=== PATIENT | male | born 1950 | race Caucasian/White ===

== ENCOUNTER 2016-08-18 10:19 | Emergency (ER) | payer OTHER, MEDICARE ==
[~2016-08-18] VITALS: Ht 182.8 cm; Wt 152.0 kg
[2016-08-18 11:01] LABS: BASO % 0.6 % (0.0-1.0); EOS # 0.2 10*3/uL (0.0-0.4); EOS % 3.4 % (1.0-4.0); HEMATOCRIT 35.1 % (42.0-52.0); HEMOGLOBIN 11.4 g/dl (14.0-18.0); IG # 0.1 10*3/uL (0.0-0.1); LYMPH # 0.8 10*3/uL (1.3-4.4); LYMPH % 16.4 % (27.0-41.0); MEAN CELL VOLUME 98.3 fl (80.0-94.0); MEAN CORPUSCULAR HGB 31.9 pg (27.0-31.0); MEAN CORPUSCULAR HGB CONC 32.5 g/dl (33.0-37.0); MEAN PLATELET VOLUME 9.4 fl (9.6-12.3); MONO # 0.6 10*3/uL (0.1-1.0); MONO % 12.7 % (3.0-9.0); NEUT # 3.3 10*3/uL (2.3-7.9); NEUT % 65.5 % (47.0-73.0); PLATELET COUNT AUTOMATED 174 10*3/uL (130-400); RED BLOOD COUNT 3.57 10*6/uL (4.50-5.90); RED CELL DISTRI WIDTH 13.3 % (0-14.5); WHITE BLOOD COUNT 5.1 10*3/uL (4.8-10.8)
[2016-08-18 11:10] LABS: INTERNATIONAL NORM RATIO 1.9 (2.0-3.5); PROTHROMBIN TIME 20.6 SECONDS (9.0-12.4)
[2016-08-18 11:16] LABS: ALBUMIN 3.4 gm/dl (3.1-4.5); ALKALINE PHOSPHATASE 68 U/L (45-117); BILIRUBIN, TOTAL 0.2 mg/dl (0.2-1.0); BUN 18 mg/dl (7-24); CARBON DIOXIDE 28 mmol/L (21-32); CHLORIDE 108 mmol/L (98-107); EST GLOM FILT AFRICAN AMERICAN > 60 ml/min; GLUCOSE 90 mg/dL (65-99); MAGNESIUM 1.7 mg/dL (1.5-2.1); POTASSIUM 3.7 mmol/L (3.5-5.1); SGOT/AST 20 IU/L (3-35); SGPT/ALT 24 U/L (12-78); SODIUM 144 mmol/L (136-145); TOTAL PROTEIN 7.2 gm/dL (6.4-8.2)
== END 2016-08-18 12:14 | disposition home or self-care (01) ==
LOC: ED 10:19
PROVIDERS: Student in an Organized Health Care Education/Training Program
DX: R06.02 Shortness of breath (principal); R07.89 Other chest pain; R05 Cough; J44.9 Chronic obstructive pulmonary disease, unspecified; I10 Essential (primary) hypertension; F17.200 Nicotine dependence, unspecified, uncomplicated

== ENCOUNTER 2017-08-26 11:10 | Emergency (ER) | payer OTHER, MEDICARE ==
[~2017-08-26] VITALS: Ht 182.8 cm; Wt 171.9 kg
--- NOTE | ~2017-08-26 | EKG ---
[place], [place] ELECTROCARDIOGRAM REPORT NAME: PRIMITIVO TOSCANO UNIT #: [id number] ROOM: DOCTOR: TOOTIE PATEL MD BIRTHDATE: [birth year] DOS: 08/26/2017 TIME: 1140 hours. FINDINGS: 1. Normal sinus rhythm at 72 beats per minute. 2. Low voltage in precordial leads. 3. The tracing is otherwise normal. 4. No previous tracing is available for comparison. TOOTIE PATEL MD CM:EKGRPT:ELECTROCARDIOGRAM REPORT 1140 1224 TOOTIE PATEL MD
[2017-08-26 11:45] LABS: BASO # 0.1 10*3/uL (0.0-0.1); BASO % 0.8 % (0.0-1.0); EOS # 0.2 10*3/uL (0.0-0.4); EOS % 2.6 % (1.0-4.0); HEMATOCRIT 37.9 % (42.0-52.0); HEMOGLOBIN 12.1 g/dl (14.0-18.0); LYMPH # 0.6 10*3/uL (1.3-4.4); LYMPH % 10.3 % (27.0-41.0); MEAN CELL VOLUME 92.7 fl (80.0-94.0); MEAN CORPUSCULAR HGB 29.6 pg (27.0-31.0); MEAN CORPUSCULAR HGB CONC 31.9 g/dl (33.0-37.0); MEAN PLATELET VOLUME 9.4 fl (9.6-12.3); MONO # 0.4 10*3/uL (0.1-1.0); MONO % 7.1 % (3.0-9.0); NEUT # 4.8 10*3/uL (2.3-7.9); NEUT % 77.1 % (47.0-73.0); PLATELET COUNT AUTOMATED 181 10*3/uL (130-400); RED BLOOD COUNT 4.09 10*6/uL (4.50-5.90); RED CELL DISTRI WIDTH 14.6 % (0-14.5); WHITE BLOOD COUNT 6.2 10*3/uL (4.8-10.8)
[2017-08-26 11:53] LABS: INTERNATIONAL NORM RATIO 2.1 (2.0-3.5)
[2017-08-26 12:02] LABS: ALBUMIN 3.3 gm/dl (3.1-4.5); ALKALINE PHOSPHATASE 64 U/L (45-117); BUN 21 mg/dl (7-24); CHLORIDE 105 mmol/L (98-107); CREATININE 1.33 mg/dL (0.70-1.30); SGOT/AST 22 IU/L (3-35); SGPT/ALT 29 U/L (12-78); SODIUM 141 mmol/L (136-145); TOTAL PROTEIN 6.8 gm/dL (6.4-8.2)
[2017-08-26 12:04] LABS: TROPONIN I < 0.015 ng/ml (<0.045)
== END 2017-08-26 13:16 | disposition home or self-care (01) ==
LOC: ED 11:10
PROVIDERS: Nurse Practitioner Family
DX: J44.9 Chronic obstructive pulmonary disease, unspecified (principal); R10.11 Right upper quadrant pain; F17.200 Nicotine dependence, unspecified, uncomplicated

== ENCOUNTER → 2018-01-12 | Outpatient (CLI) | payer MEDICARE, OTHER | END | disposition home or self-care (01) | LOC: US 12:30 | DX: I70.203 Unspecified atherosclerosis of native arteries of extremities, bilateral legs (principal); I10 Essential (primary) hypertension; I27.9 Pulmonary heart disease, unspecified ==

== ENCOUNTER 2018-11-23 04:03 | Inpatient (IN) | payer OTHER ==
[~2018-11-23] VITALS: Ht 180.3 cm; Wt 195.6 kg
--- NOTE | ~2018-11-23 | PR ---
[place], [place] PROGRESS NOTE NAME: PRIMITIVO TOSCANO UNIT #: [id number] ROOM: 422 DOCTOR: LITZY HILLMAN MD BIRTHDATE: [birth year] DOS: 11/27/2018 NEPHROLOGY FOLLOWUP NOTE SUBJECTIVE: The patient was seen and examined. He is awake and alert. He feels comfortable. He denies any major complaints to me. He states he is urinating without difficulty. PHYSICAL EXAMINATION: VITAL SIGNS: Temperature 98.3, pulse 68, respiratory rate 20, blood pressure 100/68. HEENT: Shows no JVD. LUNGS: Diminished breath sounds. No wheeze. Few scattered rhonchi were noted. HEART: S1, S2. No rub. ABDOMEN: Soft, nontender, obese. EXTREMITIES: Had +2 to 3 edema. SKIN: Showed no overt rash. LABORATORY DATA: Hemoglobin 10.7, white count of 6.9, platelets 109. Sodium 143, potassium 4.6, CO2 of 31, BUN 46, creatinine 1.76, glucose 220. Calcium 8.2, phosphorus 3.9, magnesium 2.3, albumin 2.9. ASSESSMENT AND PLAN: 1. Acute on mild chronic kidney disease. The patient has a baseline creatinine that seems to be in the low 1s. The etiology of his acute kidney injury is unclear, though suspect a prerenal process/possible acute tubular necrosis. Creatinine is about the same. Continue to hold JONATHAN inhibitor and hydrochlorothiazide for now. Since he will be staying in the hospital, we will check renal imaging. He likely will have a renal ultrasound that will be helpful, but can certainly try and see if the kidneys can be imaged and visualized. Follow labs. Replace electrolytes as needed. 2. Hypertension. Hold the JONATHAN inhibitor and hydrochlorothiazide. His blood pressure is actually on the lower side. 3. Anemia. Stable H and H. 4. Atrial fibrillation. The patient remains on Xarelto. If his creatinine rises, this may need to be changed. 5. Questionable syncope/presyncope. Being worked up by the primary service. [place], [place] PROGRESS NOTE NAME: PRIMITIVO TOSCANO UNIT #: [id number] ROOM: 422 DOCTOR: LITZY HILLMAN MD BIRTHDATE: [birth year] LITZY HILLMAN MD CM:PNTRANS [id number] LITZY HILLMAN MD 11/28/18 0131 interface
--- NOTE | ~2018-11-23 | CON ---
[place], [place] REPORT OF CONSULTATION NAME: PRIMITIVO TOSCANO UNIT #: [id number] ROOM: 422 DOCTOR: LITZY HILLMAN MD BIRTHDATE: [birth year] DOS: 11/25/2018 REASON FOR CONSULTATION: Acute kidney injury. HISTORY OF PRESENT ILLNESS: This patient is a 68-year-old male with past medical history of atrial fibrillation, COPD, lymphoma, hyperlipidemia and hypertension, came to the hospital due to inability to keep his balance. Apparently, he called 911, was brought to the hospital. The patient also complained of other issues such as headache and some hearing loss. He had some issues with nausea and abdominal pain as well. He came to the hospital for further evaluation. His initial creatinine seems to be at baseline in the range of 1.3. He has had now an increase in his creatinine, which prompted the consult to Renal. Creatinine today was noted to be 2.1. He told me he has not had any issues with voiding. Denied fevers or chills. I do not see that he received any contrast studies. He is unaware of having any issues related to his kidneys and does not recall falling or seeing a hydrogen power plant manager. It appears he does take an JONATHAN inhibitor and hydrochlorothiazide for his blood pressure. It does not appear that he has had any hypotensive episodes. ALLERGIES: No known drug allergies. MEDICATIONS: Include Solu-Medrol, Mucinex, Rocephin, Zithromax, Protonix, albuterol, Lipitor, gabapentin, Zofran, meclizine, lisinopril, hydrochlorothiazide, nystatin, insulin, morphine. PAST MEDICAL HISTORY: 1. Atrial fibrillation. 2. COPD. 3. Lymphoma. 4. Hyperlipidemia. 5. Hypertension. 6. Obesity. 7. Kidney stones. 8. Depression. 9. EGD. 10. Colonoscopy. 11. Port-A-Cath placement. 12. Right knee replacement. FAMILY HISTORY: Negative for chronic kidney disease, otherwise noncontributory. SOCIAL HISTORY: No reports of current tobacco, alcohol or illicit drugs. REVIEW OF SYSTEMS: As per HPI, otherwise a 10-point review of systems was reviewed and was negative. PHYSICAL EXAMINATION: VITAL SIGNS: Temperature is afebrile, pulse 86, respiratory rate 22, blood pressure 140/87. GENERAL: He is awake, alert, comfortable, in no acute distress. [place], [place] REPORT OF CONSULTATION NAME: PRIMITIVO TOSCANO UNIT #: [id number] ROOM: 422 DOCTOR: RAFY PUENTESLITZY Mack BIRTHDATE: [birth year] HEENT: Shows no JVD. Sclerae are anicteric. Mucous membranes are moist. Pharynx is clear. NECK: Supple. Trachea was midline. There is no neck lymphadenopathy or thyromegaly. LUNGS: Had diminished breath sounds with scattered rhonchi. I could not appreciate any wheezing. He is not using accessory muscles of respiration. HEART: S1, S2. No rub, thrill or gallop. ABDOMEN: Obese, soft and nontender. I could not appreciate organomegaly. There is no rigidity, rebound or guarding. There is no CVA tenderness. EXTREMITIES: Had trace edema. There is no lower extremity lymphadenopathy. Distal pulses were present. SKIN: Showed no overt rash. There is no petechia or purpura. Skin temperature was warm. NEUROLOGIC: He was awake, he was alert and following commands. Cranial nerves were intact. DIAGNOSTIC DATA: Hemoglobin 10.2, white count of 5.5, platelets 127. Sodium 141, potassium 4.1, CO2 of 31, BUN 30, creatinine 2.07, glucose 166, calcium 8.5, magnesium 1.8, albumin 3.1. I did notice slight troponin I elevation as high as 0.71. IMPRESSION: 1. Acute kidney injury with a baseline creatinine seems to be in the range of 1.3. The etiology of the patient's acute kidney injury seems likely related to prerenal factors. Other possibilities include obstruction versus acute tubular necrosis from prolonged prerenal state or hemodynamically mediated. 2. Hypertension. 3. Anemia. 4. Thrombocytopenia. 5. History of lymphoma. 6. Morbid obesity. 7. Atrial fibrillation. PLAN: 1. Would hold his lisinopril and hydrochlorothiazide for now. 2. Would check renal imaging. I am not sure due to his body habitus that an ultrasound will be helpful, but can consider some form of renal imaging if his creatinine does not show improvement. 3. Would check a bladder scan. 4. Dose meds for current creatinine clearance. 5. Avoid nephrotoxic agents. 6. Encourage oral fluids. Thank you for this consultation. We will follow with you. [place], [place] REPORT OF CONSULTATION NAME: PRIMITIVO TOSCANO UNIT #: [id number] ROOM: 422 DOCTOR: RAFY PUENTES,LITZY Giron BIRTHDATE: [birth year] LITZY HILLMAN MD CM:CONSTR:REPORT OF CONSULTATION 1514 11/26/18 0550 interface
--- NOTE | ~2018-11-23 | PR ---
[place], [place] PROGRESS NOTE NAME: PRIMITIVO TOSCANO UNIT #: [id number] ROOM: 422 DOCTOR: AMBER KEBEDE DPM BIRTHDATE: [birth year] DOS: 11/29/2018 SUBJECTIVE: The patient was seen for followup ulceration, lateral right ankle. OBJECTIVE: Ulcerations, lateral right ankle, are superficial in nature. No signs of full thickness breakdown. No signs of drainage or fluctuance. Edema to both lower extremities noted. ASSESSMENT: Ulceration, superficial nature, lateral right ankle; edema bilateral. PLAN: Evaluation and management. Continue local wound care and the patient can followup on discharge. AMBER KEBEDE DPM CM:ASHLIETRANS [id number] AMBER KEBEDE DPM 11/29/18 1509 interface
--- NOTE | ~2018-11-23 | EKG ---
[place], [place] ELECTROCARDIOGRAM REPORT NAME: PRIMITIVO TOSCANO UNIT #: [id number] ROOM: 422 DOCTOR: JANETH DRAFT REPORT BIRTHDATE: [birth year] [facility] Test Date: 2018-11-23 Test Time: 04:32:40 Pat Name: PRIMITIVO TOSCANO Department: Room: 422 Gender: M Chief Of Anesthesiology: : 1950 Requested By: KRISTOPHER NAPIER Order Number: [id number] Reading MD: Ksenia Mcintyre MD Measurements Intervals Savery Rate: 64 P: 22 VT: 192 QRS: -12 QRSD: 97 T: 31 QT: 411 QTc: 424 Interpretive Statements Sinus rhythm Low voltage, precordial leads Baseline wander in lead(s) V1,V2 Electronically Signed On 11-23-2018 9:41:15 PDT by Ksenia Mcintyre MD CM:EKGRPT:ELECTROCARDIOGRAM REPORT [id number] [id number] KRISTOPHER NAPIER MD EPIPHANY DRAFT REPORT KRISTOPHER NAPIER MD
--- NOTE | ~2018-11-23 | PR ---
[place], [place] PROGRESS NOTE NAME: PRIMITIVO TOSCANO UNIT #: [id number] ROOM: 422 DOCTOR: LITZY HILLMAN MD BIRTHDATE: [birth year] DOS: 11/26/2018 NEPHROLOGY FOLLOWUP SUBJECTIVE: The patient was seen and examined. He is awake and alert and feeling better. His family is at bedside. States he is probably being discharged tomorrow. Denies shortness of breath, nausea or vomiting. PHYSICAL EXAMINATION: VITAL SIGNS: Temperature 97.7, pulse 70, respiratory rate 20, blood pressure 115/45. HEENT: Shows no JVD. LUNGS: Had few scattered rhonchi. HEART: S1, S2. No rub. ABDOMEN: Obese, soft, nontender. EXTREMITIES: Had 1-2+ edema. LABORATORY DATA: Hemoglobin 10.8, white count of 5.1, platelets 108. Sodium 142, potassium 4.8, BUN 37, creatinine 1.6, glucose 196, calcium 8.4. ASSESSMENT AND PLAN: 1. Acute kidney injury with a baseline creatinine that seems to be in the low 1s. The etiology seems likely related to prerenal factors. The patient's creatinine is better. Continue ongoing supportive care. Replace electrolytes as needed. Avoid nephrotoxic agents. Continue to hold lisinopril and hydrochlorothiazide for now. 2. Hypertension. The patient's JONATHAN inhibitor and hydrochlorothiazide are on hold for now. If his renal function is improved this can be resumed likely tomorrow or on discharge. 3. Anemia. Stable hemoglobin and hematocrit. 4. Atrial fibrillation. The patient is on Xarelto, which should be fine with the improving renal function. 5. The patient likely can be discharged from renal standpoint if his creatinine is stable or improved tomorrow. Again, if his renal function has improved, we would resume his hydrochlorothiazide and lisinopril on discharge. He should have labs checked next week and he can follow up with Dr. Jaimes in the office. [place], [place] PROGRESS NOTE NAME: PRIMITIVO TOSCANO UNIT #: [id number] ROOM: 422 DOCTOR: LITZY HILLMAN MD BIRTHDATE: [birth year] LITZY HILLMAN MD CM:PNTRANS [phone] LITZY HILLMAN MD 11/27/18 0640 interface
[2018-11-23 04:17] VITALS: BP 113/53
[2018-11-23 04:25] LABS: HEMATOCRIT 38.8 % (42.0-52.0); MEAN CELL VOLUME 93.5 fl (80.0-94.0); MEAN CORPUSCULAR HGB 28.9 pg (27.0-31.0); MEAN CORPUSCULAR HGB CONC 30.9 g/dl (33.0-37.0); MEAN PLATELET VOLUME 11.3 fl (9.6-12.3); PLATELET COUNT AUTOMATED 136 10*3/uL (130-400); RED BLOOD COUNT 4.15 10*6/uL (4.50-5.90); RED CELL DISTRI WIDTH 16.7 % (0-14.5); WHITE BLOOD COUNT 4.2 10*3/uL (4.8-10.8)
[2018-11-23 04:36] LABS: ACT PARTIAL THROMBO TIME 34.3 SECONDS (20.8-31.5)
[2018-11-23 04:39] LABS: BILIRUBIN NEGATIVE (NEGATIVE); BLOOD NEGATIVE (NEGATIVE); CLARITY CLEAR (CLEAR); COLOR YELLOW (YELLOW); GLUCOSE NEGATIVE (NEGATIVE); KETONE NEGATIVE (NEGATIVE); LEUKO ESTERASE NEGATIVE (NEGATIVE); NITRITE NEGATIVE (NEGATIVE); PH 5.5 (5.0-9.0); UROBILINOGEN 0.2 E.U./dl (0.2-1.0)
[2018-11-23 04:42] LABS: ALKALINE PHOSPHATASE 74 U/L (45-117); BUN 17 mg/dl (7-24); CHLORIDE 108 mmol/L (98-107); CREATININE 1.29 mg/dL (0.70-1.30); LIPASE 131 U/L (73-393); SGOT/AST 22 IU/L (3-35); SGPT/ALT 33 U/L (12-78); SODIUM 144 mmol/L (136-145); TOTAL PROTEIN 6.4 gm/dL (6.4-8.2); TROPONIN I 0.027 ng/ml (<0.045)
[2018-11-23 04:43] VITALS: BP 119/44
[2018-11-23 04:51] LABS: ATYPICAL LYMPHS 1 % (0-0); PLATELET SUFFICIENCY LOW (NORMAL); TOTAL CELLS COUNTED 100 #CELLS
[2018-11-23 06:00] VITALS: BP 120/52
--- NOTE | 2018-11-23 06:13 | NUR ---
A 68, admitted to , under the services of MEGAN Leo DO with a diagnosis of NAUSEA WITHOUT VOMITING, COPD, OBESITY. Chief complaint is INABILITY TO AMBULATE. Patient arrived via bed from ER. Monitor applied. Initial assessment completed. Vital signs taken and recorded. MEGAN LEO DO notified of admission to the unit. Orders received. See assessment for past medical history, medications and allergies. Patient and/or family oriented to unit. [facility] policy reviewed. Clothing/patient valuable form completed. FRANCISCO WELLS
[2018-11-23] MEDS ORDERED: WARFARIN SODIU7.5 MG PO (06:17)
[2018-11-23] MEDS ORDERED: COUMADIN7.5 M1 PO (06:19)
[2018-11-23] MEDS ORDERED: LISINOPRIL-HCT1 EACH PO (06:21)
[2018-11-23] MEDS ORDERED: SERTRALINE HYD100 MG PO (06:21)
[2018-11-23] MEDS ORDERED: LIPITOR20 MG PO (06:21)
[2018-11-23] MEDS ORDERED: NEURONTIN300 MG PO (06:22)
[2018-11-23] MEDS ORDERED: OMEGA XL PO (06:24)
--- NOTE | 2018-11-23 06:25 | NUR ---
PATIENT BROUGHT IN MEDICATIONS FROM HOME. MEDS COUNTED AND SENT TO PHARMACY
--- NOTE | 2018-11-23 07:01 | NUR ---
TOSCANOPRIMITIVO Graham [id number] Please refer to the physician's history and physical for past medical history, comorbid conditions, and allergies. Diagnosis: MORBID OBESITY NAUSEA W/O VOMITING COPD EXACERBA Jackson Score: , WOUND DESCRIPTIONS: Location of the wound: right 2nd toe Thickness: Partial Size: 0.2cm x 0.4cm x 0.1cm Tunneling: none Undermining: none Sinus Tract: none Presence of Exudate: Serous Amount: Light Color: Red Odor: None Periwound Skin Appearance: Normal Wound edges: approximated Pain (associated with wound): none at time of assessment How does patient state this happened? pt unsure how this happened Location of the wound: RLE Thickness: Partial Size: 5.5cm x 6.0cm x 0.1cm Tunneling: none Undermining: none Sinus Tract: none Presence of Exudate: Serous Amount: Moderate Color: Red Odor: None Periwound Skin Appearance: Erythema Wound edges: approximated Pain (associated with wound): none at time of assessment How does patient state this happened? pt is unsure when this happened Right breasts, left breasts, abdominal folds and bilateral groins have red satelitte areas noted. Musty odor noted at time of assessment no drainage noted at time of assessment. LLE is dry and flaky at time of assessment. Purple and dark red discoloration noted. Patient stated he previously had blisters there and use some type of ointment at home and left his leg like this now. No open areas noted to right lower extremity. Right great toe black in color and patient stated this was due to one of his falling incidences. Surface the patient is resting on: Isoflex SKIN PREVENTION RECOMMENDATION: 1. Pressure redistribution support surface as appropriate 2. Elevate heels 3. Remove boots/TEDS every shift and reapply 4. Head of bed 30 degrees as tolerated 5. Assess nutrition and hydration 6. Manage moisture 7. Avoid the use of containment devices while in bed 8. Use absorptive products on surfaces limit layers of linens on bed 9. Turn and reposition every 1-2 hours in bed and every 1 hour in chair as tolerated 10. Weight shifts every 15 minutes while up in chair 11. Offloading with pillows or device to keep heels elevated off bed 12. Monitor skin at least every shift 13. Inspect under medical devices twice a day WOUND TREATMENT RECOMMENDATIONS: Consult podiatry for non-healing wound to right lower extremity. Partial thickness guidelines: Cleanse right lower extremity with nss and apply sureprep around the wound therahoney to wound bed and cover with maxorb II then apply abd pad and lightly wrap with rolled gauze. Venous and arterial studies to BLE due to non- healing wound Cleanse right breasts, left breasts, abdominal folds and bilateral groins with soap and water pat area dry then apply nystatin powder every 12 hours. Cleanse LLE with soap and water and apply lac hydrin lotion bid.
--- NOTE | 2018-11-23 07:20 | NUR ---
CALLED PHONE #1 TO REPORT CRITICAL TROPONIN. NO ANSWER WILL RETRY
--- NOTE | 2018-11-23 07:31 | NUR ---
NOTIFIED REGARDING TROPONIN LEVEL. NO NEW ORDERS.
--- NOTE | 2018-11-23 07:41 | NUR ---
PATIENT AT THIS TIME DOES NOT WANT TO STAND AND AND DO ORTHOSTATIC BLOOD PRESSURES. STATES THAT HE'S UNSURE IF HE WILL BE ABLE TO STAND RIGHT NOW. EXPLAINED TO PATIENT THE IMPORTANCE OF THE BLOOD PRESSURES. AND EXPLAINED TO HIM THAT HE WILL BE GETTING A COCKTAIL MIXTURE TO HELP HIS STOMACH FEEL BETTER
--- NOTE | 2018-11-23 07:47 | NUR ---
PHYSICAL THERAPY Nursing screen received. PT orders also received. Thank you. Maria Alejandra Resendez,PT
--- NOTE | 2018-11-23 07:58 | NUR ---
PT SITTING UP IN BED. NO DISTRESS NOTED. PT STATES HE IS UNABLE TO GET OOB AT THIS TIME TO PERFORM ORTHOS. WILL TRY AGAIN LATER. 02 IN USE VIA 2LNC. VSS. PT STATES HE IS WAITING FOR GI COCKTAIL TO KICK IN. WILL MONITOR EFFECTIVENESS OF MEDICATION. CALL LIGHT WITHIN REACH.
--- NOTE | 2018-11-23 08:23 | NUR ---
IN TO SEE PATIENT AT THIS TIME.
--- NOTE | 2018-11-23 09:00 | NUR ---
Emissions Inspector in to talk to patient. Patient states lives at home with . There are few steps in the home. Physician: ishaan gardiner [facility]acy: [facility] Home health services: none Patient's level of ADLs: MINIMAL ASSIST Patient has working utilities: all working DME: cane, walker, scooter Follow-up physician's appointment after d/c: will be made by hospitalist nurse director upon discharge Does patient want to access PORTAL?: no Discharge plan discussed with patient, patient lives at home with , states he uses a cane, walker or scooter for ambulation, patient states he will be going home when able and denies any home needs. JOVI MILNER
--- NOTE | 2018-11-23 09:05 | NUR ---
PODIATRY NOTIFIED OF CONSULT.
--- NOTE | 2018-11-23 09:28 | NUR ---
Dr. Kemp notified of wound care recommendations.
--- NOTE | 2018-11-23 10:46 | NUR ---
NOTIFIED REGARDING MOST RECENT TROPONIN LEVEL.
--- NOTE | 2018-11-23 11:10 | NUR ---
IN TO SEE PATIENT.
--- NOTE | 2018-11-23 11:30 | NUR ---
ECHO BEING PERFORMED AT THE BEDSIDE.
--- NOTE | 2018-11-23 11:51 | NUR ---
NOTIFIED REGARDING PT C/O DIZZINESS WITH MOVEMENT. NEW ORDERS TO BE ENTERED PER PHYSICIAN.
[2018-11-23 12:00] VITALS: BP 150/57
--- NOTE | 2018-11-23 12:09 | NUR ---
ANTIVERT GIVEN PER PRN ORDER FOR C/O DIZZINESS. WILL MONITOR EFFECTIVENESS.
--- NOTE | 2018-11-23 13:12 | NUR ---
NOTIFIED REGARDING MOST RECENT TROPONIN LEVEL.
--- NOTE | 2018-11-23 13:12 | NUR ---
PT STATES ANTIVERT EFFECTIVE.
--- NOTE | 2018-11-23 13:42 | NUR ---
PATIENT TAKEN OFF FLOOR VIA CART FOR SCHEDULED TESTS.
--- NOTE | 2018-11-23 15:17 | NUR ---
PT MEDICATED WITH IV PHENERGAN VIA SYRINGE PER PRN ORDER FOR C/O NAUSEA. WILL MONITOR EFFECTIVENESS.
--- NOTE | 2018-11-23 15:30 | NUR ---
Patient not available for Occupational Therapy as he was recently medicated for nausea. OTR will recheck at a later date. Angelica Linder OTR/herman
[2018-11-23 16:00] VITALS: BP 148/54
--- NOTE | 2018-11-23 19:51 | NUR ---
RESTING COMFORTABLY IN BED WITH FAMILY AT BEDSIDE. C/O DIZZINESS WHEN MOVING HEAD. EXPLAINED TO PATIENT HE HAS ANTIVERT ORDERED HE CAN HAVE BID. STATED HE WOULD TAKE IT WITH HIS NIGHT MEDICATIONS. PLEASANT/COOPERATIVE WITH ASSESSMENT. RESPIRATIONS EASY/REG ON 2L NC. CALL LIGHT IS IN REACH
[2018-11-23 20:00] VITALS: BP 150/59
--- NOTE | 2018-11-23 21:12 | NUR ---
PATIENT MEDICATED WITH PRN ANTIVERT FOR C/O DIZZINESS WHEN MOVING HIS HEAD.
[2018-11-24] VITALS: BP 126/80
--- NOTE | 2018-11-24 03:58 | NUR ---
PATIENT SLEEPING. NO S/S OF DISTRESS NOTED AT THIS TIME. RESPIRATIONS EASY/REG ON 2L NC. CALL LIGHT IN REACH
--- NOTE | 2018-11-24 05:20 | NUR ---
NOTIFIED DR DU OF PATIENT AUDIBLE WHEEZING AND STATING HE IS A LITTLE SOB. ORDERS FOR A ONE TIME DUONEB NOW.
[2018-11-24 06:38] LABS: BUN 21 mg/dl (7-24); CHLORIDE 107 mmol/L (98-107); CREATININE 1.41 mg/dL (0.70-1.30); POTASSIUM 4.6 mmol/L (3.5-5.1); SODIUM 144 mmol/L (136-145)
[2018-11-24 06:58] LABS: HEMOGLOBIN 10.9 g/dl (14.0-18.0); MEAN CELL VOLUME 95.6 fl (80.0-94.0); MEAN CORPUSCULAR HGB 28.2 pg (27.0-31.0); MEAN CORPUSCULAR HGB CONC 29.5 g/dl (33.0-37.0); MEAN PLATELET VOLUME 11.8 fl (9.6-12.3); PLATELET COUNT AUTOMATED 131 10*3/uL (130-400); RED BLOOD COUNT 3.87 10*6/uL (4.50-5.90); RED CELL DISTRI WIDTH 17.2 % (0-14.5)
[2018-11-24 07:59] LABS: ATYPICAL LYMPHS 1 % (0-0); BASOPHILS 1 % (0-1); PLATELET SUFFICIENCY NORMAL (NORMAL); TOTAL CELLS COUNTED 100 #CELLS
[2018-11-24 08:00] VITALS: BP 130/74
--- NOTE | 2018-11-24 09:00 | NUR ---
case mangement visits with patient, patient states he will be going home when able and denies any home needs
--- NOTE | 2018-11-24 10:45 | NUR ---
PT'S RIGHT SUBCLAVIAN MEDIPORT ACCESSED PER HOSPITAL POLICY. PT TOLERATED WELL.
[2018-11-24 12:00] VITALS: BP 115/75
--- NOTE | 2018-11-24 12:08 | NUR ---
Patient is eating well and consuming 100% of meals. Pt is diabetic and receiving a nighttime snack. Continue to encourage 100% PO intake of meals. No further nutrition intervention needed. Ines REYES Dietetic Student
--- NOTE | 2018-11-24 12:09 | NUR ---
case management contacted Tawanda Suarez [facility] regarding patient being admitted to this facility, spoke to Ghada, patient's information given, case management will await a return call from [facility] case manager
--- NOTE | 2018-11-24 13:45 | NUR ---
Occupational Therapy evaluation completed on 4 with full eval to follow. Precautions include fall risk, h/o recent fall prior to admission, morbid obesity, O2 use,+RLE DVT on lovenox since 11/23/18 @ 2112, high complexity level 85127 via chart review, testing and evaluation. Recommend OT per Poc and SNF to enable return home w/ . Thank you for this referral. Angelica Linder OTR/l
--- NOTE | 2018-11-24 14:19 | NUR ---
PHYSICAL THERAPY Patient evaluated on 4, full evaluation to follow. Continue with PT as per plan of care with fall, 02, max (A) x 2 and super morbid obesity and acute debility precautions. Will require SNF. PAtient is high complexity via chart review, tests and evaluation: 01122. Thank you for this referral. Maria Alejandra Resendez,PT
[2018-11-24 16:00] VITALS: BP 120/92
--- NOTE | 2018-11-24 16:56 | NUR ---
C/O HEADACHE. TYLENOL GIVEN AT THIS TIME. WILL CONT TO MONITOR. CALL LIGHT IN REACH.
[2018-11-24 20:00] VITALS: BP 111/50
--- NOTE | 2018-11-24 20:55 | NUR ---
ASSESSMENT COMPLETED. SEE ASSESSMENT INTERVENTION. RESPIRATIONS EASY NONLABOURED. VOICES NO CONCERNS AT THIS TIME. NO SIGNS OR SYMPTOMS OF DISTRESS.
--- NOTE | 2018-11-24 23:22 | NUR ---
PATIENT MEDICATED WITH PRN MORPHINE ORDERED FOR C/O BILATERAL KNEE PAIN RATED 6/10
[2018-11-25] VITALS: BP 138/95
[2018-11-25 06:48] LABS: HEMATOCRIT 34.3 % (42.0-52.0); HEMOGLOBIN 10.2 g/dl (14.0-18.0); MEAN CELL VOLUME 96.1 fl (80.0-94.0); MEAN CORPUSCULAR HGB 28.6 pg (27.0-31.0); MEAN CORPUSCULAR HGB CONC 29.7 g/dl (33.0-37.0); MEAN PLATELET VOLUME 11.7 fl (9.6-12.3); PLATELET COUNT AUTOMATED 127 10*3/uL (130-400); RED BLOOD COUNT 3.57 10*6/uL (4.50-5.90); RED CELL DISTRI WIDTH 17.4 % (0-14.5); WHITE BLOOD COUNT 5.5 10*3/uL (4.8-10.8)
[2018-11-25 07:03] LABS: ACT PARTIAL THROMBO TIME 70.5 SECONDS (20.8-31.5); INTERNATIONAL NORM RATIO 2.6 (2.0-3.5)
[2018-11-25 07:19] LABS: ALBUMIN 3.1 gm/dl (3.1-4.5); BASOPHILS 2 % (0-1); CREATININE 2.07 mg/dL (0.70-1.30); PLATELET SUFFICIENCY LOW (NORMAL); POTASSIUM 4.1 mmol/L (3.5-5.1); ROULEAUX SLIGHT; TOTAL CELLS COUNTED 100 #CELLS
[2018-11-25 07:20] LABS: SCHISTOCYTES FEW; TOTAL PROTEIN 6.2 gm/dL (6.4-8.2)
--- NOTE | 2018-11-25 09:14 | NUR ---
DR. TOLEDO CALLED ABOUT THE LOVENOX BEING DISCONTINUED AND NO OTHER ANTICOAGULATION BEING ORDERED. AWAITING ORDERS. DR. TOLEDO ALSO CALLED ABOUT PATIENTS LUNGS SOUNDING WHEEZY WITH RHONCHI AND BEING SHORT OF BREATH. DR TOLEDO INSTRUCTED TO HANG THE NORMAL SALINE AND RUN AT 80ML/HR.
--- NOTE | 2018-11-25 09:40 | NUR ---
PT COMPLAINS OF LEG/KNEE PAIN RATED AT AN 8 AT THIS TIME. PRN MORPHINE GIVEN. WILL MONITOR FOR EFFECTIVENESS.
--- NOTE | 2018-11-25 11:30 | NUR ---
PT STATES RELIEF FROM PREVIOUS PRN MORPHINE.
--- NOTE | 2018-11-25 11:45 | NUR ---
OT NOTE Pt was seen this A.M. 1:1 for 15 minute OT session. Upon arrival pt was supine in bed. Pt identified by name and and had complaints of generalized weakness and fatigue and 7/10 mid/low back pain and B knee pain. Pt presented to therapy with continous 2L-O2 via NC which he remained on throughout entire session. Pt transferred supine to sit EOB with maxA X 2. Upon inital rise pt had complaints of dizziness. Educated pt on visual fixation technique to help decrease dizziness and slow movements. After aprox 20 seconds pt stated it had slowed down. Multiple sit to stand transfers completed from bed level with modA x 2 and use of w/w for UE support. Challenged pt's static standing tolerance needed for increased I in self care tasks and functional transfers. Pt was able to tolerate aprox 1-2 minutes at a time before sitting due to fatigue. Pt required seated rest break throughout. Pt transferred back into bed sit to supine with SBA. There he was left with call light in hand, tray table in place, and bed alarm activated for safety. Continue with rec D/C plan to SNF. RUFINA Evans/Jeff
--- NOTE | 2018-11-25 11:55 | NUR ---
PHYSICAL THERAPY informed consent given, pt identified by name and . pt presented supine in bed spO2 99% 2L. supine to sit maxAx2. static stitting balance hands supported 4min no LOB presented. STS and stand to sit 2 trials modAx2, edcation for safe hand placement to avoid injury. Static standing balance 1min wh walker CGA no LOB presented, v/c to lock out knees and push with B UE to assist with ambulation. Walked 4ft x2 wh walker forwards and backwards CGA, then took 4 sidesteps to the L to sit high enough in the bed. Sit to supine and bed mobility SBA. Ended treatment pt supine in bed spO2 94% 2L, call light and belongings in reach, bed alarm on. 1:1 treatment with ASSEM[employer]ER [employer] 20min. ALEXANDER VELIZ [employer]
[2018-11-25 12:00] VITALS: BP 140/87
--- NOTE | 2018-11-25 13:18 | NUR ---
DR. SIMPSON'S OFFICE NOTIFIED OF CONSULTATION
[2018-11-25 16:00] VITALS: BP 117/72
--- NOTE | 2018-11-25 16:08 | NUR ---
OCCUPATIONAL THERAPY CO-SIGN I approve of the Occupational Therapy notes written above. KASSY CARUSO OTR/Jeff
[2018-11-25 20:00] VITALS: BP 117/59
[2018-11-26] VITALS: BP 132/58
[2018-11-26 06:19] LABS: HEMATOCRIT 35.8 % (42.0-52.0); HEMOGLOBIN 10.8 g/dl (14.0-18.0); MEAN CELL VOLUME 95.2 fl (80.0-94.0); MEAN CORPUSCULAR HGB 28.7 pg (27.0-31.0); MEAN CORPUSCULAR HGB CONC 30.2 g/dl (33.0-37.0); MEAN PLATELET VOLUME 11.5 fl (9.6-12.3); PLATELET COUNT AUTOMATED 108 10*3/uL (130-400); RED BLOOD COUNT 3.76 10*6/uL (4.50-5.90); RED CELL DISTRI WIDTH 16.7 % (0-14.5); WHITE BLOOD COUNT 5.1 10*3/uL (4.8-10.8)
[2018-11-26 06:36] LABS: CREATININE 1.6 mg/dL (0.70-1.30); POTASSIUM 4.8 mmol/L (3.5-5.1)
[2018-11-26 06:45] LABS: PLATELET SUFFICIENCY LOW (NORMAL); TOTAL CELLS COUNTED 100 #CELLS
[2018-11-26 06:50] LABS: ACT PARTIAL THROMBO TIME 31.6 SECONDS (20.8-31.5); INTERNATIONAL NORM RATIO 2.1 (2.0-3.5)
[2018-11-26 12:00] VITALS: BP 115/45
[2018-11-26 16:00] VITALS: BP 110/48
[2018-11-26 20:00] VITALS: BP 106/56
[2018-11-27] VITALS: BP 100/68
[2018-11-27 06:12] LABS: HEMOGLOBIN 10.7 g/dl (14.0-18.0); MEAN CELL VOLUME 95.1 fl (80.0-94.0); MEAN CORPUSCULAR HGB 29.1 pg (27.0-31.0); MEAN CORPUSCULAR HGB CONC 30.6 g/dl (33.0-37.0); MEAN PLATELET VOLUME 11.9 fl (9.6-12.3); PLATELET COUNT AUTOMATED 109 10*3/uL (130-400); RED BLOOD COUNT 3.68 10*6/uL (4.50-5.90); RED CELL DISTRI WIDTH 16.8 % (0-14.5); WHITE BLOOD COUNT 6.9 10*3/uL (4.8-10.8)
[2018-11-27 06:26] LABS: INTERNATIONAL NORM RATIO 1.8 (2.0-3.5)
[2018-11-27 06:32] LABS: ALBUMIN 2.9 gm/dl (3.1-4.5); CREATININE 1.76 mg/dL (0.70-1.30); PHOSPHOROUS 3.9 mg/dL (2.5-4.9); POTASSIUM 4.6 mmol/L (3.5-5.1); TOTAL PROTEIN 6.3 gm/dL (6.4-8.2)
[2018-11-27 06:43] LABS: TOTAL CELLS COUNTED 100 #CELLS
[2018-11-27 06:44] LABS: PLATELET SUFFICIENCY LOW (NORMAL); POLYCHROMASIA SLIGHT
[2018-11-27 16:00] VITALS: BP 129/67
--- NOTE | 2018-11-27 18:29 | NUR ---
[id number] DR. OSBORNE THAT PT HAD A RUN OF V-TACH AND HIS HR WAS IN THE 150'S.
--- NOTE | 2018-11-27 18:45 | NUR ---
DR. PARRA'S ANSWERING SERVICE NOTIFIED OF CONSULT.
[2018-11-27 20:00] VITALS: BP 96/66
[2018-11-28] VITALS: BP 108/80
[2018-11-28 06:28] LABS: HEMATOCRIT 33.3 % (42.0-52.0); HEMOGLOBIN 10.1 g/dl (14.0-18.0); MEAN CELL VOLUME 93.8 fl (80.0-94.0); MEAN CORPUSCULAR HGB 28.5 pg (27.0-31.0); MEAN CORPUSCULAR HGB CONC 30.3 g/dl (33.0-37.0); MEAN PLATELET VOLUME 11.4 fl (9.6-12.3); PLATELET COUNT AUTOMATED 114 10*3/uL (130-400); RED BLOOD COUNT 3.55 10*6/uL (4.50-5.90); WHITE BLOOD COUNT 6.4 10*3/uL (4.8-10.8)
[2018-11-28 06:33] LABS: INTERNATIONAL NORM RATIO 1.5 (2.0-3.5)
[2018-11-28 06:42] LABS: CREATININE 1.62 mg/dL (0.70-1.30); PHOSPHOROUS 3.8 mg/dL (2.5-4.9); POTASSIUM 4.5 mmol/L (3.5-5.1); TOTAL PROTEIN 5.9 gm/dL (6.4-8.2)
[2018-11-28 06:59] LABS: ATYPICAL LYMPHS 1 % (0-0); TOTAL CELLS COUNTED 100 #CELLS
[2018-11-28 07:00] LABS: PLATELET SUFFICIENCY LOW (NORMAL)
--- NOTE | 2018-11-28 08:07 | NUR ---
May convert patient to PO azithromycin if clinically feasible - all criteria met for IV to PO conversion. Thanks, Matthew Griffin, PharmD, [facility]
[2018-11-28 09:00] VITALS: BP 110/62
--- NOTE | 2018-11-28 09:00 | NUR ---
case management visits with patient, patient denies any home needs
--- NOTE | 2018-11-28 10:20 | NUR ---
PHYSICAL THERAPY informed consent given, pt identified by name and . pt presented supine in bed spO2 96% 2L. supine to sit SBA. sit to stand from EOB CGA, Static standing balance 1min B UE supported by walker, CGA no LOB presented.STS from chair min/modAx2. Walked 60ft x1, 20ft x1 walker CGA, seated rests in between spO2 93% 2L. TUG test 37 seconds walker [facility] no LOB presented. Ended treatment pt sitting in chair with ALMARAZ present spO2 95% 2L. 1:1 treatment with ASSEMBL[employer] 20min. ALEXANDER VELIZ [employer]
--- NOTE | 2018-11-28 10:25 | NUR ---
OT NOTE Pt was seen this A.M. 1:1 for 25 minute OT session. Upon arrival pt was supine in bed. Pt identified by name and and had no complaints at this time. Pt presented to therapy with continous 2L-O2 via NC which he remained on throughout entire session. At rest pt's SpO2 was 96%. Pt transferred supine to sit EOB with SBA. Sit to stand completed from bed level with Nikole X 1. Challenged pt's static standing tolerance needed for increased I in self care tasks and functional transfers and pt was able to tolerate aprox 90 seconds before sitting due to fatigue. Functional mobility completed into the bathroom with CGA and use of w/w for UE support. There he transferred on to standard commode with CGA and use of grab bar. Clothing management completed with CGA and toilet hygiene completed supervision while seated. Pt then transferred off standard commode with modA and use of grab bar due to low surface. Pt stood sink side while washing his hands with Nikole for UE support due to quick onset of fatigue and generalized weakness. Throughout ADL task pt required verbal prompts for pursed lip breathing throughout, pt had fair carry over throughout. SpO2 93% after toileting and sink side task. Pt then returned to recliner. While sitting in recliner requested for pt to doff and roc socks, pt required maxA to complete. Educated and demonstrated use of LB adaptive equipment including sock aid and force dispatcher for increased I in LB dressing. Pt was able to doff socks using the force dispatcher with SBA and donned with sock aid with SBA. Pt was issued a sock aid at this time. Pt transferred back into bed sit to supine with SBA. There he was left with call light in hand, tray table in place, and phone in reach. Continue with rec D/C plan to SNF. RUFINA Evans/Jeff
[2018-11-28 12:00] VITALS: BP 132/41
[2018-11-28 16:00] VITALS: BP 130/52
[2018-11-28 20:00] VITALS: BP 136/68
--- NOTE | 2018-11-29 00:08 | NUR ---
PT STATES HE IS NOT FEELING NAUSEUS AND WILL NOT NEED HIS 0000 DOSE OF ZOPHRAN.
--- NOTE | 2018-11-29 04:04 | NUR ---
This patient will follow up care with [facility] patient stated he seen them in the past and will continue care with them.
[2018-11-29 06:19] LABS: CREATININE 1.6 mg/dL (0.70-1.30); POTASSIUM 4.5 mmol/L (3.5-5.1)
[2018-11-29 08:30] VITALS: BP 160/80
--- NOTE | 2018-11-29 09:49 | NUR ---
PHYSICAL THERAPY informed consent given, pt identified by name and . pt presented supine in bed spO2 97% 2L. supine to sit SBA. STS from EOB CGA. STS and stand to sit from chair modAx2. Walked 20ft x1, 60ft x1 wh walker CGA, seated rests in between, spO2 93% 2L. TUG test 36 seconds CGA no LOB presented, education to reach back for chair to avoid injury. education breathing technique to avoid low spO2 levels. Ended treatment pt sitting EOB with ALMARAZ present spO2 reached 93% 2L after 88% 2L after walk. 1:1 treatment with ROOFER APPRENTICE 15min. ALEXANDER VELIZ ROOFER APPRENTICE
--- NOTE | 2018-11-29 09:55 | NUR ---
OT Note Pt was seen this AM 1:1 for 20 mins for OT session. Upon arrival pt was sitting upright in bed. Pt identified by name and and did not have any complaints at this time. Pt presented to therapy with continuous 2L-O2 via NC which he remined on throughout entire session. His O2 level was at 96% at rest while sitting EOB. Pt was CGA with sit to stand at bed side. He utilized w/w with CGA with funtional mobility to BR. Pt required CGA from sit to stand from toilet and SBA while standing at sink side for dynamic standing balance. Safety concerns were present due to not reaching back before sitting and impulsive behavior with rushing with functional mobility. After functional mobility O2 level dropped to 88% but went back up to 93% within a few seconds of rest. Required mod x2 assistance with sit to stand from recliner due to lower, softer surface. Good recollection of education on AE for lower body dressing and good performance with sequencing with sock aid while donning and doffing sock. Standing tolerance was approximately 2 mins before getting fatigued. SBA was required for bed mobility to get back into bed. PT was left sitting upright in bed with his call button within reach. Continue with rec D/C to SNF. Jared VARGAS/student RUFINA Evans/Jeff
[2018-11-29 12:00] VITALS: BP 140/53
--- NOTE | 2018-11-29 12:52 | NUR ---
PATIENT TESTED FOR USE OF HOME OXYGEN AT REST ON ROOM AIR PATIENT WAS: SPO2:95% HEART RATE:82 RESPIRATORY RATE:23 BLOOD PRESSURE:140/53 DURING AMBULATION THE PATIENT SHOWED SIGNS OF WEAKNESS, AND SHORTNESS OF BREATHE. HIS SPO2 NEVER DROPPED BELOW 90% DURING EXCERTION. PATIENT DOES NOT QUALIFY FOR HOME OXYGEN.
[2018-11-29] MEDS ORDERED: XARE15TA PO (14:44)
[2018-11-29] MEDS ORDERED: MECLIZINE HCL25 M2 PO (14:44)
[2018-11-29] MEDS ORDERED: NYSTOP60 GM T (14:44)
[2018-11-29] MEDS ORDERED: PREDNISONE10 MG PO (14:44)
[2018-11-29] MEDS ORDERED: AVPAK AZITHROM250 M1 PO ×2 (14:44→14:55)
[2018-11-29] MEDS ORDERED: MUCINEX ER600 MG PO (14:44)
[2018-11-29] MEDS ORDERED: XARE20MG PO (14:55)
[2018-11-29] MEDS ORDERED: Ipratropium Brom3 ML INH (15:11)
[2018-11-29] MEDS ORDERED: PROAIR HFA8.5 GM INH (15:11)
[2018-11-29] MEDS ORDERED: NEBULIZER (15:12)
--- NOTE | 2018-11-29 15:45 | NUR ---
OCCUPATIONAL THERAPY CO-SIGN I approve of the Occupational Therapy notes written above. KASSY CARUSO OTR/Jeff
--- NOTE | 2018-11-29 18:51 | NUR ---
Discharge instructions reviewed with patient/family. Patient receptive and verbalizes understanding. Follow-up care understood. Written instructions given to patient/family. heparin in right sc mediport, medport removed, intact. dressing applied. wound picture done of right lower leg, pt already had his shoes on and did not want right toe picture done prior to discharge. pt discharged home, wheelchair SALOMON BENITES
--- NOTE | 2018-11-30 07:02 | NUR ---
PHYSICAL THERAPY CO-SIGN I approve of the Phyical Therapy notes written above. AMITA MARINELLI PT
[2018-12-14] MEDS ORDERED: PRILOSEC20 M1 PO (19:14)
[2018-12-19] MEDS ORDERED: ELIQUIS5 M1 PO (09:43)
[2018-12-19] MEDS ORDERED: PREDNISONE10 MG PO (09:43)
[2018-12-19] MEDS ORDERED: LEVAQUIN500 M2 PO (09:43)
[2018-12-19] MEDS ORDERED: LOPRESSOR25 MG PO (09:43)
== END 2018-11-29 18:51 | disposition home or self-care (01) | DRG 193 ==
LOC: ED 04:03 → 4E 05:41 → EDHOLD 05:41 → 4E 05:44
PROVIDERS: Emergency Medicine; Emergency Medicine Emergency Medical Services; Family Medicine; Internal Medicine; Student in an Organized Health Care Education/Training Program; ADMIT Internal Medicine
DX: J18.9 Pneumonia, unspecified organism (principal); J96.00 Acute respiratory failure, unspecified whether with hypoxia or hypercapnia; J44.1 Chronic obstructive pulmonary disease with (acute) exacerbation; E44.1 Mild protein-calorie malnutrition; I82.411 Acute embolism and thrombosis of right femoral vein; L97.319 Non-pressure chronic ulcer of right ankle with unspecified severity; N17.9 Acute kidney failure, unspecified; I47.2 Ventricular tachycardia; Z68.44 Body mass index [BMI] 60.0-69.9, adult; J44.0 Chronic obstructive pulmonary disease with (acute) lower respiratory infection; R55 Syncope and collapse; R42 Dizziness and giddiness; E11.622 Type 2 diabetes mellitus with other skin ulcer; R51 Headache; E11.51 Type 2 diabetes mellitus with diabetic peripheral angiopathy without gangrene; I70.211 Atherosclerosis of native arteries of extremities with intermittent claudication, right leg; I87.8 Other specified disorders of veins; D69.6 Thrombocytopenia, unspecified; I70.202 Unspecified atherosclerosis of native arteries of extremities, left leg; I48.0 Paroxysmal atrial fibrillation; R29.6 Repeated falls; H90.11 Conductive hearing loss, unilateral, right ear, with unrestricted hearing on the contralateral side; R11.0 Nausea; E66.01 Morbid (severe) obesity due to excess calories; F32.9 Major depressive disorder, single episode, unspecified; E11.65 Type 2 diabetes mellitus with hyperglycemia; I12.9 Hypertensive chronic kidney disease with stage 1 through stage 4 chronic kidney disease, or unspecified chronic kidney disease; E11.22 Type 2 diabetes mellitus with diabetic chronic kidney disease; N18.9 Chronic kidney disease, unspecified; E78.5 Hyperlipidemia, unspecified; Z96.651 Presence of right artificial knee joint; H61.21 Impacted cerumen, right ear; D64.9 Anemia, unspecified; Z85.528 Personal history of other malignant neoplasm of kidney; Z87.442 Personal history of urinary calculi; Z83.3 Family history of diabetes mellitus; Z80.8 Family history of malignant neoplasm of other organs or systems; Z79.01 Long term (current) use of anticoagulants; Z85.72 Personal history of non-Hodgkin lymphomas; Z82.49 Family history of ischemic heart disease and other diseases of the circulatory system; Z79.899 Other long term (current) drug therapy; Z92.21 Personal history of antineoplastic chemotherapy

== ENCOUNTER 2019-11-01 10:45 | Inpatient (IN) | payer MEDICARE, OTHER ==
[~2019-11-01] VITALS: Ht 180.3 cm; Wt 179.3 kg
[2019-11-01] VITALS (9 sets, daily range): BP systolic 106–165; BP diastolic 44–98
[~2019-11-01 10:45] MED LIST: AVPAK AZITHROM250 M1 PO; COUMADIN7.5 M1 PO; ELIQUIS5 M1 PO; Ipratropium Brom3 ML INH; LEVAQUIN500 M2 PO; LIPITOR20 MG PO; LISINOPRIL-HCT1 EACH PO; LOPRESSOR25 MG PO; MECLIZINE HCL25 M2 PO; MUCINEX ER600 MG PO; NEBULIZER; NEURONTIN300 MG PO; NYSTOP60 GM T; OMEGA XL PO; PREDNISONE10 MG PO; PRILOSEC20 M1 PO; PROAIR HFA8.5 GM INH; SERTRALINE HYD100 MG PO; WARFARIN SODIU7.5 MG PO; XARE15TA PO; XARE20MG PO
[2019-11-01 11:06] LABS: ABG BASE EXCESS 8.8 mmol/L (-2.0-2.0); ARTERIAL BLOOD GAS PH 7.393 (7.35-7.45)
[2019-11-01 11:26] LABS: HEMATOCRIT 31.9 % (42.0-52.0); HEMOGLOBIN 9.4 g/dl (14.0-18.0); MEAN CELL VOLUME 95.8 fl (80.0-94.0); MEAN CORPUSCULAR HGB 28.2 pg (27.0-31.0); MEAN CORPUSCULAR HGB CONC 29.5 g/dl (33.0-37.0); MEAN PLATELET VOLUME 11.5 fl (9.6-12.3); PLATELET COUNT AUTOMATED 58 10*3/uL (130-400); RED BLOOD COUNT 3.33 10*6/uL (4.50-5.90); RED CELL DISTRI WIDTH 15.8 % (0-14.5)
[2019-11-01 11:37] LABS: ACT PARTIAL THROMBO TIME 36.1 SECONDS (20.0-32.1); INTERNATIONAL NORM RATIO 1.2 (2.0-3.5)
[2019-11-01 11:50] LABS: ALBUMIN 2.9 gm/dl (3.1-4.5); ALKALINE PHOSPHATASE 60 U/L (45-117); BUN 18 mg/dl (7-24); CHLORIDE 103 mmol/L (98-107); CREATININE 1.23 mg/dL (0.70-1.30); POTASSIUM 3.5 mmol/L (3.5-5.1); SGOT/AST 18 IU/L (3-35); SGPT/ALT 20 U/L (12-78); SODIUM 142 mmol/L (136-145); TOTAL PROTEIN 6.6 gm/dL (6.4-8.2)
[2019-11-01 12:02] LABS: ATYPICAL LYMPHS 1 % (0-0); BASOPHILS 2 % (0-1); OVALOCYTES FEW; PLATELET SUFFICIENCY LOW (NORMAL); STOMATOCYTE FEW; TOTAL CELLS COUNTED 100 #CELLS
[2019-11-01 12:03] LABS: ROULEAUX SLIGHT
[2019-11-01 12:05] LABS: WHITE BLOOD COUNT 1.5 10*3/uL (4.8-10.8)
[2019-11-02] VITALS: BP 138/70
[2019-11-02 05:40] LABS: ALBUMIN 2.6 gm/dl (3.1-4.5); ALKALINE PHOSPHATASE 50 U/L (45-117); BUN 18 mg/dl (7-24); CHLORIDE 106 mmol/L (98-107); PHOSPHOROUS 3.1 mg/dL (2.5-4.9); POTASSIUM 3.8 mmol/L (3.5-5.1); SGOT/AST 21 IU/L (3-35); SGPT/ALT 19 U/L (12-78); SODIUM 144 mmol/L (136-145)
[2019-11-02 05:48] LABS: THYROID STIM HORMONE (HS) 0.625 uIU/ml (0.358-4.75)
[2019-11-02 05:58] LABS: HEMOGLOBIN 8.4 g/dl (14.0-18.0); MEAN CORPUSCULAR HGB 27.8 pg (27.0-31.0); MEAN PLATELET VOLUME 10.9 fl (9.6-12.3); PLATELET COUNT AUTOMATED 57 10*3/uL (130-400); RED BLOOD COUNT 3.02 10*6/uL (4.50-5.90); RED CELL DISTRI WIDTH 15.9 % (0-14.5)
[2019-11-02 06:03] LABS: WHITE BLOOD COUNT 1.7 10*3/uL (4.8-10.8)
[2019-11-02 07:18] LABS: BASOPHILS 2 % (0-1); TOTAL CELLS COUNTED 100 #CELLS
[2019-11-02 07:19] LABS: OVALOCYTES FEW; PLATELET SUFFICIENCY LOW (NORMAL); POLYCHROMASIA SLIGHT; ROULEAUX SLIGHT; SCHISTOCYTES FEW; STOMATOCYTE FEW
[2019-11-02 08:00] VITALS: BP 151/69
[2019-11-02 08:48] LABS: ABG BASE EXCESS 8.1 mmol/L (-2.0-2.0); ARTERIAL BLOOD GAS PH 7.321 (7.35-7.45)
[2019-11-02 12:00] VITALS: BP 134/58
[2019-11-02 16:00] VITALS: BP 142/52
[2019-11-02 20:00] VITALS: BP 146/85
[2019-11-03 06:53] LABS: HEMATOCRIT 28.3 % (42.0-52.0); HEMOGLOBIN 8.2 g/dl (14.0-18.0); MEAN CELL VOLUME 97.3 fl (80.0-94.0); MEAN CORPUSCULAR HGB 28.2 pg (27.0-31.0); MEAN PLATELET VOLUME 11.9 fl (9.6-12.3); PLATELET COUNT AUTOMATED 58 10*3/uL (130-400); RED BLOOD COUNT 2.91 10*6/uL (4.50-5.90); RED CELL DISTRI WIDTH 15.9 % (0-14.5)
[2019-11-03 07:08] LABS: ALBUMIN 2.5 gm/dl (3.1-4.5); BUN 18 mg/dl (7-24); CHLORIDE 104 mmol/L (98-107); CREATININE 1.05 mg/dL (0.70-1.30); PHOSPHOROUS 3.1 mg/dL (2.5-4.9); POTASSIUM 3.6 mmol/L (3.5-5.1); SGOT/AST 26 IU/L (3-35); SGPT/ALT 22 U/L (12-78); SODIUM 144 mmol/L (136-145); TOTAL PROTEIN 5.9 gm/dL (6.4-8.2)
[2019-11-03 07:10] LABS: ALKALINE PHOSPHATASE 49 U/L (45-117); LDH 281 U/L (87-241); WHITE BLOOD COUNT 1.6 10*3/uL (4.8-10.8)
[2019-11-03 07:50] LABS: ATYPICAL LYMPHS 2 % (0-0); BASOPHILS 2 % (0-1); OVALOCYTES FEW; PLATELET SUFFICIENCY LOW (NORMAL); POLYCHROMASIA SLIGHT; ROULEAUX SLIGHT; TOTAL CELLS COUNTED 100 #CELLS
[2019-11-03 08:00] VITALS: BP 151/48
[2019-11-03 12:00] VITALS: BP 138/59
[2019-11-03 16:00] VITALS: BP 157/56
[2019-11-03 20:00] VITALS: BP 159/69
[2019-11-04 06:41] LABS: HEMATOCRIT 27.9 % (42.0-52.0); HEMOGLOBIN 7.9 g/dl (14.0-18.0); MEAN CELL VOLUME 98.6 fl (80.0-94.0); MEAN CORPUSCULAR HGB 27.9 pg (27.0-31.0); MEAN CORPUSCULAR HGB CONC 28.3 g/dl (33.0-37.0); MEAN PLATELET VOLUME 11.9 fl (9.6-12.3); NUCLEATED RED BLOOD CELL 0.7 % (0.0-0.0); RED BLOOD COUNT 2.83 10*6/uL (4.50-5.90)
[2019-11-04 06:43] LABS: PLATELET COUNT AUTOMATED 61 10*3/uL (130-400)
[2019-11-04 06:53] LABS: ALBUMIN 2.3 gm/dl (3.1-4.5); ALKALINE PHOSPHATASE 47 U/L (45-117); BUN 17 mg/dl (7-24); CHLORIDE 107 mmol/L (98-107); CREATININE 0.99 mg/dL (0.70-1.30); POTASSIUM 3.6 mmol/L (3.5-5.1); SGOT/AST 23 IU/L (3-35); SGPT/ALT 22 U/L (12-78); SODIUM 145 mmol/L (136-145); TOTAL PROTEIN 5.7 gm/dL (6.4-8.2)
[2019-11-04 07:28] LABS: BASOPHILS 1 % (0-1); PLATELET SUFFICIENCY LOW (NORMAL); TOTAL CELLS COUNTED 100 #CELLS
[2019-11-04 08:00] VITALS: BP 139/66
[2019-11-04 12:00] VITALS: BP 145/57
[2019-11-04 14:16] LABS: ABG BASE EXCESS 9.7 mmol/L (-2.0-2.0); ARTERIAL BLOOD GAS PH 7.327 (7.35-7.45)
[2019-11-04 16:00] VITALS: BP 145/55
[2019-11-04 17:26] LABS: ABG BASE EXCESS 10.3 mmol/L (-2.0-2.0); ARTERIAL BLOOD GAS PH 7.343 (7.35-7.45)
[2019-11-04 20:00] VITALS: BP 110/60
[2019-11-04 20:03] LABS: ABG BASE EXCESS 10.3 mmol/L (-2.0-2.0); ARTERIAL BLOOD GAS PH 7.367 (7.35-7.45)
[2019-11-05] VITALS: BP 114/31
[2019-11-05 06:45] LABS: BUN 20 mg/dl (7-24); CHLORIDE 105 mmol/L (98-107); CREATININE 1.12 mg/dL (0.70-1.30); POTASSIUM 3.5 mmol/L (3.5-5.1); SODIUM 145 mmol/L (136-145)
[2019-11-05 07:28] LABS: RED BLOOD COUNT 2.82 10*6/uL (4.50-5.90); WHITE BLOOD COUNT 4.7 10*3/uL (4.8-10.8)
[2019-11-05 07:29] LABS: HEMATOCRIT 27.7 % (42.0-52.0)
[2019-11-05 07:30] LABS: MEAN CELL VOLUME 98.2 fl (80.0-94.0); MEAN CORPUSCULAR HGB 28.4 pg (27.0-31.0)
[2019-11-05 07:31] LABS: MEAN CORPUSCULAR HGB CONC 28.9 g/dl (33.0-37.0); PLATELET COUNT AUTOMATED 57 10*3/uL (130-400)
[2019-11-05 07:56] LABS: BASOPHILS 3 % (0-1); PLATELET SUFFICIENCY LOW (NORMAL); TOTAL CELLS COUNTED 100 #CELLS
[2019-11-05 08:00] VITALS: BP 149/76
[2019-11-05 08:05] LABS: ABG BASE EXCESS 11.4 mmol/L (-2.0-2.0); ARTERIAL BLOOD GAS PH 7.319 (7.35-7.45)
[2019-11-05 12:00] VITALS: BP 140/43
[2019-11-05 16:00] VITALS: BP 116/43
[2019-11-05 20:30] VITALS: BP 131/54
[2019-11-06] VITALS (7 sets, daily range): BP systolic 118–149; BP diastolic 51–88
[2019-11-06 05:57] LABS: HEMATOCRIT 28.1 % (42.0-52.0); HEMOGLOBIN 8.2 g/dl (14.0-18.0); MEAN CELL VOLUME 96.9 fl (80.0-94.0); MEAN CORPUSCULAR HGB 28.3 pg (27.0-31.0); MEAN CORPUSCULAR HGB CONC 29.2 g/dl (33.0-37.0); MEAN PLATELET VOLUME 12.8 fl (9.6-12.3); PLATELET COUNT AUTOMATED 61 10*3/uL (130-400)
[2019-11-06 06:01] LABS: BUN 22 mg/dl (7-24); CHLORIDE 105 mmol/L (98-107); CREATININE 1.04 mg/dL (0.70-1.30); POTASSIUM 3.4 mmol/L (3.5-5.1); SODIUM 146 mmol/L (136-145)
[2019-11-06 06:38] LABS: ATYPICAL LYMPHS 1 % (0-0); BASOPHILS 1 % (0-1); PLATELET SUFFICIENCY LOW (NORMAL); ROULEAUX SLIGHT; STOMATOCYTE FEW; TOTAL CELLS COUNTED 100 #CELLS
[2019-11-06 06:39] LABS: OVALOCYTES FEW
[2019-11-06 11:10] LABS: ABG BASE EXCESS 12.4 mmol/L (-2.0-2.0); ARTERIAL BLOOD GAS PH 7.426 (7.35-7.45)
[2019-11-07] VITALS (7 sets, daily range): BP systolic 99–155; BP diastolic 51–66
[2019-11-07 06:18] LABS: HEMATOCRIT 26.4 % (42.0-52.0); HEMOGLOBIN 7.7 g/dl (14.0-18.0); MEAN CORPUSCULAR HGB 27.4 pg (27.0-31.0); MEAN CORPUSCULAR HGB CONC 29.2 g/dl (33.0-37.0); MEAN PLATELET VOLUME 11.9 fl (9.6-12.3); NUCLEATED RED BLOOD CELL 0.7 % (0.0-0.0); PLATELET COUNT AUTOMATED 62 10*3/uL (130-400); RED BLOOD COUNT 2.81 10*6/uL (4.50-5.90); RED CELL DISTRI WIDTH 15.9 % (0-14.5); WHITE BLOOD COUNT 4.5 10*3/uL (4.8-10.8)
[2019-11-07 06:36] LABS: ALBUMIN 2.5 gm/dl (3.1-4.5); ALKALINE PHOSPHATASE 53 U/L (45-117); BUN 19 mg/dl (7-24); CHLORIDE 105 mmol/L (98-107); CREATININE 0.99 mg/dL (0.70-1.30); POTASSIUM 3.8 mmol/L (3.5-5.1); SGOT/AST 17 IU/L (3-35); SGPT/ALT 20 U/L (12-78); SODIUM 145 mmol/L (136-145); TOTAL PROTEIN 5.5 gm/dL (6.4-8.2)
[2019-11-07 07:16] LABS: BASOPHILS 1 % (0-1); TOTAL CELLS COUNTED 100 #CELLS
[2019-11-07 07:18] LABS: MICROCYTOSIS SLIGHT; PLATELET SUFFICIENCY LOW (NORMAL)
[2019-11-07 07:52] LABS: ABG BASE EXCESS 12.8 mmol/L (-2.0-2.0); ARTERIAL BLOOD GAS PH 7.451 (7.35-7.45)
[2019-11-08] VITALS (7 sets, daily range): BP systolic 117–167; BP diastolic 46–68
[2019-11-08 05:53] LABS: BUN 16 mg/dl (7-24); CHLORIDE 104 mmol/L (98-107); CREATININE 1.15 mg/dL (0.70-1.30); POTASSIUM 3.4 mmol/L (3.5-5.1); SODIUM 144 mmol/L (136-145)
[2019-11-08 05:56] LABS: HEMATOCRIT 26.1 % (42.0-52.0); HEMOGLOBIN 7.7 g/dl (14.0-18.0); MEAN CELL VOLUME 93.9 fl (80.0-94.0); MEAN CORPUSCULAR HGB 27.7 pg (27.0-31.0); MEAN CORPUSCULAR HGB CONC 29.5 g/dl (33.0-37.0); MEAN PLATELET VOLUME 12.1 fl (9.6-12.3); NUCLEATED RED BLOOD CELL 0.6 % (0.0-0.0); PLATELET COUNT AUTOMATED 57 10*3/uL (130-400); RED BLOOD COUNT 2.78 10*6/uL (4.50-5.90); RED CELL DISTRI WIDTH 16.1 % (0-14.5)
[2019-11-08 07:14] LABS: BASOPHILS 4 % (0-1); PLATELET SUFFICIENCY LOW (NORMAL); TOTAL CELLS COUNTED 100 #CELLS
[2019-11-09] VITALS: BP 132/57
[2019-11-09 06:08] LABS: HEMATOCRIT 25.8 % (42.0-52.0); HEMOGLOBIN 7.6 g/dl (14.0-18.0); MEAN CELL VOLUME 94.2 fl (80.0-94.0); MEAN CORPUSCULAR HGB 27.7 pg (27.0-31.0); MEAN CORPUSCULAR HGB CONC 29.5 g/dl (33.0-37.0); MEAN PLATELET VOLUME 12.7 fl (9.6-12.3); NUCLEATED RED BLOOD CELL 0.7 % (0.0-0.0); PLATELET COUNT AUTOMATED 70 10*3/uL (130-400); RED BLOOD COUNT 2.74 10*6/uL (4.50-5.90); RED CELL DISTRI WIDTH 16.3 % (0-14.5)
[2019-11-09 06:17] LABS: BUN 14 mg/dl (7-24); CHLORIDE 105 mmol/L (98-107); CREATININE 1.13 mg/dL (0.70-1.30); PHOSPHOROUS 3.6 mg/dL (2.5-4.9); POTASSIUM 3.6 mmol/L (3.5-5.1); SODIUM 146 mmol/L (136-145)
[2019-11-09 07:08] LABS: BASOPHILS 1 % (0-1); PLATELET SUFFICIENCY LOW (NORMAL); POLYCHROMASIA SLIGHT; TOTAL CELLS COUNTED 100 #CELLS
[2019-11-09 08:00] VITALS: BP 140/56
[2019-11-09 12:00] VITALS: BP 124/85
[2019-11-09 16:00] VITALS: BP 147/55
[2019-11-09 20:00] VITALS: BP 139/58
[2019-11-10] VITALS: BP 146/58
[2019-11-10 06:11] LABS: HEMATOCRIT 25.4 % (42.0-52.0); HEMOGLOBIN 7.4 g/dl (14.0-18.0); MEAN CELL VOLUME 94.8 fl (80.0-94.0); MEAN CORPUSCULAR HGB 27.6 pg (27.0-31.0); MEAN CORPUSCULAR HGB CONC 29.1 g/dl (33.0-37.0); MEAN PLATELET VOLUME 12.7 fl (9.6-12.3); NUCLEATED RED BLOOD CELL 0.7 % (0.0-0.0); PLATELET COUNT AUTOMATED 62 10*3/uL (130-400); RED BLOOD COUNT 2.68 10*6/uL (4.50-5.90); RED CELL DISTRI WIDTH 16.6 % (0-14.5); WHITE BLOOD COUNT 4.3 10*3/uL (4.8-10.8)
[2019-11-10 06:44] LABS: BUN 13 mg/dl (7-24); CHLORIDE 105 mmol/L (98-107); POTASSIUM 3.8 mmol/L (3.5-5.1); SODIUM 146 mmol/L (136-145)
[2019-11-10 07:21] LABS: BASOPHILS 4 % (0-1); PLATELET SUFFICIENCY LOW (NORMAL); TOTAL CELLS COUNTED 100 #CELLS; TOXIC GRANULATION MARKED
[2019-11-10 07:22] LABS: POLYCHROMASIA SLIGHT
[2019-11-10 12:00] VITALS: BP 145/48
[2019-11-10 16:00] VITALS: BP 144/52
[2019-11-10 20:00] VITALS: BP 150/53
[2019-11-11] VITALS: BP 153/46
[2019-11-11 06:11] LABS: HEMATOCRIT 25.2 % (42.0-52.0); HEMOGLOBIN 7.4 g/dl (14.0-18.0); MEAN CELL VOLUME 94.4 fl (80.0-94.0); MEAN CORPUSCULAR HGB 27.7 pg (27.0-31.0); MEAN CORPUSCULAR HGB CONC 29.4 g/dl (33.0-37.0); MEAN PLATELET VOLUME 12.8 fl (9.6-12.3); NUCLEATED RED BLOOD CELL 0.7 % (0.0-0.0); PLATELET COUNT AUTOMATED 64 10*3/uL (130-400); RED BLOOD COUNT 2.67 10*6/uL (4.50-5.90); RED CELL DISTRI WIDTH 16.5 % (0-14.5); WHITE BLOOD COUNT 4.3 10*3/uL (4.8-10.8)
[2019-11-11 08:00] VITALS: BP 134/60
[2019-11-11 08:21] LABS: ATYPICAL LYMPHS 2 % (0-0); BASOPHILS 4 % (0-1); POLYCHROMASIA SLIGHT; STOMATOCYTE FEW; TOTAL CELLS COUNTED 100 #CELLS
[2019-11-11 08:22] LABS: PLATELET SUFFICIENCY LOW (NORMAL); ROULEAUX SLIGHT; TOXIC GRANULATION MODERATE
[2019-11-11 12:00] VITALS: BP 136/60
[2019-11-11 16:00] VITALS: BP 138/50
[2019-11-11 20:00] VITALS: BP 136/50
[2019-11-12] VITALS: BP 100/70
[2019-11-12 07:50] VITALS: BP 112/54
[2019-11-12 12:00] VITALS: BP 122/52
[2019-11-12 14:10] VITALS: BP 122/54
[2019-11-12 16:00] VITALS: BP 157/98
[2019-11-12 20:00] VITALS: BP 129/61
[2019-11-13] VITALS: BP 129/51
[2019-11-13 06:09] LABS: HEMATOCRIT 26.1 % (42.0-52.0); HEMOGLOBIN 7.6 g/dl (14.0-18.0); MEAN CELL VOLUME 94.6 fl (80.0-94.0); MEAN CORPUSCULAR HGB 27.5 pg (27.0-31.0); MEAN CORPUSCULAR HGB CONC 29.1 g/dl (33.0-37.0); MEAN PLATELET VOLUME 12.4 fl (9.6-12.3); NUCLEATED RED BLOOD CELL 1.1 % (0.0-0.0); PLATELET COUNT AUTOMATED 70 10*3/uL (130-400); RED BLOOD COUNT 2.76 10*6/uL (4.50-5.90); RED CELL DISTRI WIDTH 17.2 % (0-14.5); WHITE BLOOD COUNT 3.7 10*3/uL (4.8-10.8)
[2019-11-13 06:13] LABS: ALBUMIN 2.8 gm/dl (3.1-4.5); BUN 14 mg/dl (7-24); CHLORIDE 106 mmol/L (98-107); CREATININE 1.13 mg/dL (0.70-1.30); POTASSIUM 3.8 mmol/L (3.5-5.1); SGOT/AST 21 IU/L (3-35); SGPT/ALT 22 U/L (12-78); SODIUM 146 mmol/L (136-145)
[2019-11-13 06:14] LABS: ALKALINE PHOSPHATASE 59 U/L (45-117); TOTAL PROTEIN 5.6 gm/dL (6.4-8.2)
[2019-11-13 07:23] LABS: BASOPHILS 3 % (0-1); PLATELET SUFFICIENCY LOW (NORMAL); POLYCHROMASIA SLIGHT; TOTAL CELLS COUNTED 100 #CELLS
[2019-11-13 07:54] VITALS: BP 132/88
[2019-11-13] MEDS ORDERED: BREO ELLIPTA 21 EACH INH (10:37)
[2019-11-13] MEDS ORDERED: PROTONIX40 MG PO (10:37)
== END 2019-11-13 13:44 | disposition other institution (70) | DRG 177 ==
LOC: ED 10:45 → EDHOLD 15:11 → 5E 15:11 → 4E 11-08 14:27
PROVIDERS: Emergency Medicine; Internal Medicine; Internal Medicine Critical Care Medicine; Registered Nurse; ADMIT Family Medicine
PROC: 5A09357 Assistance with Respiratory Ventilation, Less than 24 Consecutive Hours, Continuous Positive Airway Pressure (ICD-10-PCS; principal; 2019-11-05)
PROC: 5A09357 Assistance with Respiratory Ventilation, Less than 24 Consecutive Hours, Continuous Positive Airway Pressure (ICD-10-PCS; 2019-11-06)
PROC: 5A09357 Assistance with Respiratory Ventilation, Less than 24 Consecutive Hours, Continuous Positive Airway Pressure (ICD-10-PCS; 2019-11-07)
PROC: 5A09357 Assistance with Respiratory Ventilation, Less than 24 Consecutive Hours, Continuous Positive Airway Pressure (ICD-10-PCS; 2019-11-08)
PROC: 5A09357 Assistance with Respiratory Ventilation, Less than 24 Consecutive Hours, Continuous Positive Airway Pressure (ICD-10-PCS; 2019-11-09)
PROC: 5A09357 Assistance with Respiratory Ventilation, Less than 24 Consecutive Hours, Continuous Positive Airway Pressure (ICD-10-PCS; 2019-11-10)
PROC: 5A09357 Assistance with Respiratory Ventilation, Less than 24 Consecutive Hours, Continuous Positive Airway Pressure (ICD-10-PCS; 2019-11-12)
PROC: 5A09357 Assistance with Respiratory Ventilation, Less than 24 Consecutive Hours, Continuous Positive Airway Pressure (ICD-10-PCS; 2019-11-13)
DX: J15.6 Pneumonia due to other Gram-negative bacteria (principal); J96.21 Acute and chronic respiratory failure with hypoxia; J96.22 Acute and chronic respiratory failure with hypercapnia; D61.818 Other pancytopenia; J44.1 Chronic obstructive pulmonary disease with (acute) exacerbation; E44.0 Moderate protein-calorie malnutrition; J44.0 Chronic obstructive pulmonary disease with (acute) lower respiratory infection; E87.2 Acidosis; E87.3 Alkalosis; I48.21 Permanent atrial fibrillation; C85.90 Non-Hodgkin lymphoma, unspecified, unspecified site; I13.0 Hypertensive heart and chronic kidney disease with heart failure and stage 1 through stage 4 chronic kidney disease, or unspecified chronic kidney disease; I50.32 Chronic diastolic (congestive) heart failure; Z68.43 Body mass index [BMI] 50.0-59.9, adult; G47.33 Obstructive sleep apnea (adult) (pediatric); F32.9 Major depressive disorder, single episode, unspecified; D69.6 Thrombocytopenia, unspecified; Z03.818 Encounter for observation for suspected exposure to other biological agents ruled out; D53.9 Nutritional anemia, unspecified; R73.9 Hyperglycemia, unspecified; N28.89 Other specified disorders of kidney and ureter; R91.8 Other nonspecific abnormal finding of lung field; E66.01 Morbid (severe) obesity due to excess calories; I48.0 Paroxysmal atrial fibrillation; E78.5 Hyperlipidemia, unspecified; Z96.651 Presence of right artificial knee joint; N18.3 Chronic kidney disease, stage 3 (moderate); Z79.899 Other long term (current) drug therapy; Z79.01 Long term (current) use of anticoagulants; Z86.718 Personal history of other venous thrombosis and embolism; Z82.49 Family history of ischemic heart disease and other diseases of the circulatory system

== ENCOUNTER → 2020-01-29 | Outpatient (CLI) | payer MEDICARE, OTHER ==
[~2020-01-29] MED LIST changes: +BREO ELLIPTA 21 EACH INH; +PROTONIX40 MG PO
== END | disposition home or self-care (01) ==
LOC: CARD 01-19 09:00
DX: I35.8 Other nonrheumatic aortic valve disorders (principal); I10 Essential (primary) hypertension; R55 Syncope and collapse

== ENCOUNTER 2020-03-18 16:09 | Emergency (ER) | payer MEDICARE, OTHER ==
[~2020-03-18] VITALS: Wt 167.8 kg
[2020-03-18] MEDS ORDERED: CLEOCIN HCL150 MG PO (16:45)
[2020-03-18] MEDS ORDERED: NORCO 5-325 TA1 EACH PO (16:45)
== END 2020-03-18 16:43 | disposition home or self-care (01) ==
LOC: ED 16:09
DX: K04.7 Periapical abscess without sinus (principal); K08.89 Other specified disorders of teeth and supporting structures; Z79.899 Other long term (current) drug therapy

== ENCOUNTER → 2020-04-12 | Outpatient (CLI) | payer MEDICARE, OTHER ==
[~2020-04-12] MED LIST changes: +CLEOCIN HCL150 MG PO; +NORCO 5-325 TA1 EACH PO
== END | disposition home or self-care (01) ==
LOC: US 06:54
PROVIDERS: ATTEND Nurse Practitioner Primary Care
DX: K76.0 Fatty (change of) liver, not elsewhere classified (principal); R16.1 Splenomegaly, not elsewhere classified; N28.89 Other specified disorders of kidney and ureter

== ENCOUNTER → 2021-06-08 | Outpatient (CLI) | payer MEDICARE, OTHER ==
[~2021-06-08] MED LIST changes: +HYDROCHLOROTH12.5 M2 PO; +IMODIUM A-D2 M2 PO; +LISINOPRIL20 MG PO; +PHARMASSURE FO0.4 MG PO; +ZOLOFT100 MG PO; +ZOLOFT50 MG PO
[2021-06-08 08:44] LABS: HEMATOCRIT 26.3 % (42.0-52.0); MEAN CELL VOLUME 96.7 fl (80.0-94.0); MEAN CORPUSCULAR HGB 28.3 pg (27.0-31.0); MEAN CORPUSCULAR HGB CONC 29.3 g/dl (33.0-37.0); PLATELET COUNT AUTOMATED 33 10*3/uL (130-400); RED BLOOD COUNT 2.72 10*6/uL (4.50-5.90); RED CELL DISTRI WIDTH 18.8 % (0-14.5)
[2021-06-08 09:02] LABS: ATYPICAL LYMPHS 1 % (0-0); BASOPHILS 1 % (0-1); TOTAL CELLS COUNTED 100 #CELLS
[2021-06-08 09:03] LABS: OVALOCYTES FEW; PLATELET SUFFICIENCY LOW (NORMAL); POLYCHROMASIA SLIGHT; SCHISTOCYTES FEW
== END | disposition home or self-care (01) ==
LOC: LAB 08:14
PROVIDERS: ATTEND Internal Medicine
DX: D61.810 Antineoplastic chemotherapy induced pancytopenia (principal)

== ENCOUNTER → 2021-06-10 | Outpatient (CLI) | payer MEDICARE, OTHER ==
[2021-06-10] VITALS (8 sets, daily range): BP systolic 99–112; BP diastolic 40–61
== END | disposition home or self-care (01) ==
LOC: TRNFUSION 01:05
PROVIDERS: ATTEND Internal Medicine
DX: D64.9 Anemia, unspecified (principal); I10 Essential (primary) hypertension; F32.9 Major depressive disorder, single episode, unspecified; J44.9 Chronic obstructive pulmonary disease, unspecified; E11.9 Type 2 diabetes mellitus without complications; Z87.891 Personal history of nicotine dependence

== ENCOUNTER 2021-06-13 15:10 | Inpatient (IN) | payer MEDICARE, OTHER ==
[2021-06-13] VITALS (12 sets, daily range): BP systolic 90–146; BP diastolic 33–90
[~2021-06-13] VITALS: Ht 182.8 cm; Wt 136.8 kg
[~2021-06-13 15:10] MED LIST changes: -HYDROCHLOROTH12.5 M2 PO; -LISINOPRIL20 MG PO
[2021-06-13 16:06] LABS: HEMATOCRIT 22.9 % (42.0-52.0); MEAN CELL VOLUME 92.3 fl (80.0-94.0); MEAN CORPUSCULAR HGB CONC 31.4 g/dl (33.0-37.0); MEAN PLATELET VOLUME 10.7 fl (9.6-12.3); RED BLOOD COUNT 2.48 10*6/uL (4.50-5.90); RED CELL DISTRI WIDTH 17.3 % (0-14.5)
[2021-06-13 16:22] LABS: ALBUMIN 2.9 gm/dl (3.1-4.5); ALKALINE PHOSPHATASE 63 U/L (45-117); BUN 20 mg/dl (7-24); CHLORIDE 105 mmol/L (98-107); CPK 75 U/L (39-308); CREATININE 1.26 mg/dL (0.70-1.30); POTASSIUM 3.2 mmol/L (3.5-5.1); SGOT/AST 9 IU/L (3-35); SGPT/ALT 14 U/L (12-78); SODIUM 142 mmol/L (136-145); TOTAL PROTEIN 5.9 gm/dL (6.4-8.2)
[2021-06-13 16:27] LABS: ACT PARTIAL THROMBO TIME 32.3 SECONDS (20.0-32.1); INTERNATIONAL NORM RATIO 1.1 (2.0-3.5)
[2021-06-13 16:29] LABS: TROPONIN I < 0.015 ng/ml (<0.045)
[2021-06-13 16:44] LABS: WHITE BLOOD COUNT 0.9 10*3/uL (4.8-10.8)
[2021-06-13 16:45] LABS: PLATELET COUNT AUTOMATED 15 10*3/uL (130-400)
[2021-06-13 16:53] LABS: BASOPHILS 2 % (0-1); TOTAL CELLS COUNTED 50 #CELLS
[2021-06-13 16:54] LABS: PLATELET SUFFICIENCY LOW (NORMAL)
[2021-06-13 16:58] LABS: OVALOCYTES FEW
[2021-06-13 16:59] LABS: MICROCYTOSIS SLIGHT
[2021-06-14] VITALS (22 sets, daily range): BP systolic 103–168; BP diastolic 41–90
[2021-06-14 05:28] LABS: ALBUMIN 2.7 gm/dl (3.1-4.5); ALKALINE PHOSPHATASE 53 U/L (45-117); BUN 18 mg/dl (7-24); CHLORIDE 108 mmol/L (98-107); CREATININE 1.03 mg/dL (0.70-1.30); FREE T4 0.91 ng/dl (0.76-1.46); POTASSIUM 3.7 mmol/L (3.5-5.1); SGOT/AST 12 IU/L (3-35); SGPT/ALT 14 U/L (12-78); SODIUM 143 mmol/L (136-145); TOTAL PROTEIN 5.6 gm/dL (6.4-8.2)
[2021-06-14 05:33] LABS: THYROID STIM HORMONE (HS) 0.773 uIU/ml (0.358-4.75)
[2021-06-14 06:07] LABS: HEMATOCRIT 22.3 % (42.0-52.0); MEAN CELL VOLUME 92.9 fl (80.0-94.0); MEAN CORPUSCULAR HGB 28.8 pg (27.0-31.0); MEAN CORPUSCULAR HGB CONC 30.9 g/dl (33.0-37.0); MEAN PLATELET VOLUME 9.2 fl (9.6-12.3); RED CELL DISTRI WIDTH 16.9 % (0-14.5)
[2021-06-14 06:19] LABS: PLATELET COUNT AUTOMATED 37 10*3/uL (130-400)
[2021-06-14 06:21] LABS: WHITE BLOOD COUNT 1.1 10*3/uL (4.8-10.8)
[2021-06-14 09:36] LABS: BASOPHILS 2 % (0-1); TOTAL CELLS COUNTED 100 #CELLS
[2021-06-14 09:37] LABS: PLATELET SUFFICIENCY LOW (NORMAL)
[2021-06-14] MEDS ORDERED: HYDROCHLOROTH12.5 M2 PO (11:40)
[2021-06-14] MEDS ORDERED: LISINOPRIL20 MG PO (11:41)
[2021-06-14 15:26] LABS: HEMATOCRIT 24.2 % (42.0-52.0); MEAN CORPUSCULAR HGB 28.6 pg (27.0-31.0); MEAN CORPUSCULAR HGB CONC 31.4 g/dl (33.0-37.0); MEAN PLATELET VOLUME 9.7 fl (9.6-12.3); PLATELET COUNT AUTOMATED 34 10*3/uL (130-400); RED BLOOD COUNT 2.66 10*6/uL (4.50-5.90); RED CELL DISTRI WIDTH 16.3 % (0-14.5)
[2021-06-14 16:35] LABS: ATYPICAL LYMPHS 2 % (0-0); BASOPHILS 1 % (0-1); TOTAL CELLS COUNTED 100 #CELLS
[2021-06-14 16:36] LABS: PLATELET SUFFICIENCY LOW (NORMAL)
[2021-06-15] VITALS (8 sets, daily range): BP systolic 99–160; BP diastolic 50–71
[2021-06-15 07:04] LABS: HEMATOCRIT 27.8 % (42.0-52.0); MEAN CELL VOLUME 91.7 fl (80.0-94.0); MEAN CORPUSCULAR HGB CONC 31.7 g/dl (33.0-37.0); MEAN PLATELET VOLUME 10.6 fl (9.6-12.3); RED BLOOD COUNT 3.03 10*6/uL (4.50-5.90); RED CELL DISTRI WIDTH 16.2 % (0-14.5)
[2021-06-15 07:10] LABS: PLATELET COUNT AUTOMATED 27 10*3/uL (130-400)
[2021-06-15 07:19] LABS: BUN 21 mg/dl (7-24); CHLORIDE 110 mmol/L (98-107); CREATININE 0.83 mg/dL (0.70-1.30); SODIUM 146 mmol/L (136-145)
[2021-06-15 07:44] LABS: BASOPHILS 1 % (0-1); ROULEAUX MARKED; TOTAL CELLS COUNTED 100 #CELLS
[2021-06-15 07:45] LABS: PLATELET SUFFICIENCY LOW (NORMAL)
[2021-06-16] VITALS: BP 145/57
[2021-06-16 06:37] LABS: HEMATOCRIT 26.2 % (42.0-52.0); MEAN CELL VOLUME 92.6 fl (80.0-94.0); MEAN CORPUSCULAR HGB CONC 31.3 g/dl (33.0-37.0); MEAN PLATELET VOLUME 11.5 fl (9.6-12.3); RED BLOOD COUNT 2.83 10*6/uL (4.50-5.90); RED CELL DISTRI WIDTH 16.3 % (0-14.5)
[2021-06-16 06:42] LABS: PLATELET COUNT AUTOMATED 25 10*3/uL (130-400); WHITE BLOOD COUNT 1.1 10*3/uL (4.8-10.8)
[2021-06-16 06:49] LABS: CHLORIDE 109 mmol/L (98-107); CREATININE 0.87 mg/dL (0.70-1.30); POTASSIUM 3.9 mmol/L (3.5-5.1); SODIUM 144 mmol/L (136-145)
[2021-06-16 06:50] LABS: BUN 20 mg/dl (7-24)
[2021-06-16 08:00] VITALS: BP 138/78
[2021-06-16 08:23] LABS: BASOPHILS 4 % (0-1); OVALOCYTES FEW; PLATELET SUFFICIENCY LOW (NORMAL); TOTAL CELLS COUNTED 100 #CELLS
[2021-06-16 08:24] LABS: ROULEAUX MODERATE
[2021-06-16 12:00] VITALS: BP 136/76
[2021-06-16 16:00] VITALS: BP 134/74
[2021-06-16 20:00] VITALS: BP 130/65
[2021-06-17] VITALS (11 sets, daily range): BP systolic 118–142; BP diastolic 53–68
[2021-06-17 07:03] LABS: HEMATOCRIT 24.6 % (42.0-52.0); MEAN CELL VOLUME 91.1 fl (80.0-94.0); MEAN CORPUSCULAR HGB 28.9 pg (27.0-31.0); MEAN CORPUSCULAR HGB CONC 31.7 g/dl (33.0-37.0); MEAN PLATELET VOLUME 11.9 fl (9.6-12.3); RED CELL DISTRI WIDTH 15.9 % (0-14.5)
[2021-06-17 07:04] LABS: BUN 17 mg/dl (7-24); CHLORIDE 106 mmol/L (98-107); CREATININE 0.82 mg/dL (0.70-1.30); POTASSIUM 4.1 mmol/L (3.5-5.1); SODIUM 141 mmol/L (136-145)
[2021-06-17 07:06] LABS: PLATELET COUNT AUTOMATED 25 10*3/uL (130-400)
[2021-06-17 07:46] LABS: OVALOCYTES FEW; PLATELET SUFFICIENCY LOW (NORMAL); ROULEAUX MODERATE; TOTAL CELLS COUNTED 100 #CELLS
[2021-06-17] MEDS ORDERED: LISINOPRIL20 MG PO (15:01)
== END 2021-06-17 17:37 | disposition home or self-care (01) | DRG 808 ==
LOC: ED 15:10 → 5E 17:04 → EDHOLD 17:04 → 5E 06-14 07:01
PROVIDERS: Emergency Medicine; Internal Medicine; Student in an Organized Health Care Education/Training Program; ADMIT Emergency Medicine; ATTEND Emergency Medicine
PROC: 30233R1 Transfusion of Nonautologous Platelets into Peripheral Vein, Percutaneous Approach (ICD-10-PCS; principal; 2021-06-13)
PROC: 30233N1 Transfusion of Nonautologous Red Blood Cells into Peripheral Vein, Percutaneous Approach (ICD-10-PCS; 2021-06-13)
PROC: BD1BYZZ Fluoroscopy of Mouth/Oropharynx using Other Contrast (ICD-10-PCS; 2021-06-17)
DX: D61.810 Antineoplastic chemotherapy induced pancytopenia (principal); N17.0 Acute kidney failure with tubular necrosis; E43 Unspecified severe protein-calorie malnutrition; I50.32 Chronic diastolic (congestive) heart failure; I13.0 Hypertensive heart and chronic kidney disease with heart failure and stage 1 through stage 4 chronic kidney disease, or unspecified chronic kidney disease; Z68.41 Body mass index [BMI] 40.0-44.9, adult; E86.0 Dehydration; D70.2 Other drug-induced agranulocytosis; T45.1X5A Adverse effect of antineoplastic and immunosuppressive drugs, initial encounter; D46.9 Myelodysplastic syndrome, unspecified; S00.83XA Contusion of other part of head, initial encounter; E87.6 Hypokalemia; I48.91 Unspecified atrial fibrillation; R13.10 Dysphagia, unspecified; N18.30 Chronic kidney disease, stage 3 unspecified; R73.9 Hyperglycemia, unspecified; E66.01 Morbid (severe) obesity due to excess calories; E78.5 Hyperlipidemia, unspecified; X58.XXXA Exposure to other specified factors, initial encounter; Y93.89 Activity, other specified; Y99.8 Other external cause status; Y92.89 Other specified places as the place of occurrence of the external cause; Z79.51 Long term (current) use of inhaled steroids; Z79.899 Other long term (current) drug therapy; Z82.49 Family history of ischemic heart disease and other diseases of the circulatory system

== ENCOUNTER → 2021-06-19 | Outpatient (CLI) | payer MEDICARE, OTHER ==
[~2021-06-19] MED LIST changes: +HYDROCHLOROTH12.5 M2 PO; +LISINOPRIL20 MG PO
== END | disposition home or self-care (01) ==
LOC: RAD 16:52
PROVIDERS: ATTEND Nurse Practitioner Primary Care
DX: M25.521 Pain in right elbow (principal); M25.511 Pain in right shoulder

== ENCOUNTER → 2021-07-01 | Outpatient (CLI) | payer MEDICARE, OTHER ==
[2021-07-01 11:16] LABS: HEMATOCRIT 27.7 % (42.0-52.0); MEAN CELL VOLUME 94.5 fl (80.0-94.0); MEAN CORPUSCULAR HGB 28.7 pg (27.0-31.0); MEAN CORPUSCULAR HGB CONC 30.3 g/dl (33.0-37.0); MEAN PLATELET VOLUME 10.3 fl (9.6-12.3); PLATELET COUNT AUTOMATED 73 10*3/uL (130-400); RED BLOOD COUNT 2.93 10*6/uL (4.50-5.90); RED CELL DISTRI WIDTH 16.2 % (0-14.5)
[2021-07-01 11:27] LABS: WHITE BLOOD COUNT 1.5 10*3/uL (4.8-10.8)
[2021-07-01 11:38] LABS: ATYPICAL LYMPHS 1 % (0-0); BASOPHILS 4 % (0-1); OVALOCYTES FEW; PLATELET SUFFICIENCY LOW (NORMAL); SCHISTOCYTES FEW; TOTAL CELLS COUNTED 100 #CELLS
[2021-07-01 11:39] LABS: ROULEAUX SLIGHT
== END | disposition home or self-care (01) ==
LOC: LAB 10:33
PROVIDERS: ATTEND Internal Medicine
DX: C82.00 Follicular lymphoma grade I, unspecified site (principal); C85.90 Non-Hodgkin lymphoma, unspecified, unspecified site

== ENCOUNTER 2021-07-21 10:59 | Emergency (ER) | payer MEDICARE, OTHER ==
[2021-07-21 11:36] LABS: HEMATOCRIT 21.1 % (42.0-52.0); MEAN CELL VOLUME 97.2 fl (80.0-94.0); MEAN CORPUSCULAR HGB CONC 30.8 g/dl (33.0-37.0); PLATELET COUNT AUTOMATED 30 10*3/uL (130-400); RED BLOOD COUNT 2.17 10*6/uL (4.50-5.90); RED CELL DISTRI WIDTH 17.7 % (0-14.5); WHITE BLOOD COUNT 2.2 10*3/uL (4.8-10.8)
[2021-07-21 11:44] LABS: ACT PARTIAL THROMBO TIME 29.1 SECONDS (20.0-32.1); INTERNATIONAL NORM RATIO 1.1 (2.0-3.5)
[2021-07-21 11:48] LABS: ALBUMIN 2.3 gm/dl (3.1-4.5); ALKALINE PHOSPHATASE 61 U/L (45-117); BUN 19 mg/dl (7-24); CHLORIDE 110 mmol/L (98-107); CREATININE 0.95 mg/dL (0.70-1.30); LIPASE 69 U/L (73-393); SGOT/AST 9 IU/L (3-35); SGPT/ALT 17 U/L (12-78); SODIUM 147 mmol/L (136-145); TOTAL PROTEIN 5.4 gm/dL (6.4-8.2)
[2021-07-21 11:58] LABS: ATYPICAL LYMPHS 1 % (0-0); BASOPHILS 2 % (0-1); TOTAL CELLS COUNTED 100 #CELLS
[2021-07-21 11:59] LABS: BLASTS 1 % (0-0)
[2021-07-21 12:00] LABS: OVALOCYTES FEW; PLATELET SUFFICIENCY LOW (NORMAL); POLYCHROMASIA SLIGHT; SCHISTOCYTES FEW
[2021-07-21 12:45] VITALS: BP 143/51
[2021-07-21 13:00] VITALS: BP 143/53
[2021-07-21 13:30] VITALS: BP 146/66
[2021-07-21 14:00] VITALS: BP 157/68
[2021-07-21 15:00] VITALS: BP 160/74
== END 2021-07-21 17:23 ==
LOC: ED 10:59
PROVIDERS: Emergency Medicine
DX: D53.9 Nutritional anemia, unspecified (principal); D46.9 Myelodysplastic syndrome, unspecified; F17.200 Nicotine dependence, unspecified, uncomplicated; Z79.899 Other long term (current) drug therapy

== ENCOUNTER 2021-08-09 02:54 | Emergency (ER) | payer MEDICARE, OTHER ==
[2021-08-09] MEDS ORDERED: NAPROXEN250 MG PO (06:15)
== END 2021-08-09 07:11 | disposition home or self-care (01) ==
LOC: ED 02:54
DX: S40.021A Contusion of right upper arm, initial encounter (principal); S00.83XA Contusion of other part of head, initial encounter; S00.93XA Contusion of unspecified part of head, initial encounter; Z79.899 Other long term (current) drug therapy; F17.200 Nicotine dependence, unspecified, uncomplicated; W18.39XA Other fall on same level, initial encounter; Y93.89 Activity, other specified; Y92.89 Other specified places as the place of occurrence of the external cause; Y99.8 Other external cause status

== ENCOUNTER 2021-08-11 03:05 | Inpatient (IN) | payer MEDICARE, OTHER ==
[~2021-08-11] VITALS: Ht 187.9 cm; Wt 146.3 kg
[2021-08-11] VITALS (29 sets, daily range): BP systolic 83–200; BP diastolic 32–88
[~2021-08-11 03:05] MED LIST changes: +NAPROXEN250 MG PO
[2021-08-11 03:26] LABS: MEAN CELL VOLUME 103.4 fl (80.0-94.0); MEAN CORPUSCULAR HGB CONC 30.9 g/dl (33.0-37.0); NUCLEATED RED BLOOD CELL 0.3 % (0.0-0.0); RED BLOOD COUNT 1.75 10*6/uL (4.50-5.90); WHITE BLOOD COUNT 5.9 10*3/uL (4.8-10.8)
[2021-08-11 03:29] LABS: HEMATOCRIT 18.1 % (42.0-52.0); PLATELET COUNT AUTOMATED 18 10*3/uL (130-400)
[2021-08-11 03:44] LABS: PLATELET SUFFICIENCY LOW (NORMAL); TOTAL CELLS COUNTED 100 #CELLS
[2021-08-11 03:47] LABS: ALBUMIN 2.1 gm/dl (3.1-4.5); CREATININE 3.09 mg/dL (0.70-1.30); TOTAL PROTEIN 5.6 gm/dL (6.4-8.2)
[2021-08-11 06:17] LABS: BILIRUBIN Negative (Negative); BLOOD Trace-Intact (Negative); CLARITY Turbid (Clear); COLOR Dark Yellow (Yellow); GLUCOSE Negative (Negative); KETONE Trace (Negative); LEUKO ESTERASE 1+ (Negative); NITRITE Negative (Negative)
[2021-08-11 06:34] LABS: BACTERIA TRACE; RBC 0-2 rbc/hpf (0-2); WBC 51-100 wbc/hpf (0-5)
[2021-08-11 17:30] LABS: MEAN CORPUSCULAR HGB 30.8 pg (27.0-31.0); MEAN CORPUSCULAR HGB CONC 31.2 g/dl (33.0-37.0); MEAN PLATELET VOLUME 12.4 fl (9.6-12.3); RED BLOOD COUNT 2.01 10*6/uL (4.50-5.90); RED CELL DISTRI WIDTH 23.6 % (0-14.5); WHITE BLOOD COUNT 4.9 10*3/uL (4.8-10.8)
[2021-08-11 17:44] LABS: PLATELET COUNT AUTOMATED 35 10*3/uL (130-400)
[2021-08-11 17:45] LABS: HEMATOCRIT 19.9 % (42.0-52.0)
[2021-08-11 18:07] LABS: TOTAL CELLS COUNTED 100 #CELLS
[2021-08-11 18:08] LABS: BURR CELLS FEW; PLATELET SUFFICIENCY LOW (NORMAL)
[2021-08-11 21:16] LABS: URINE BLOOD,POST TRANSFUSION 3+ (Negative)
[2021-08-11 21:23] LABS: URINE RBC,POST TRANSFUSION 16-20 rbc/hpf (0-2)
[2021-08-12] VITALS (16 sets, daily range): BP systolic 105–129; BP diastolic 41–85
[2021-08-12 06:30] LABS: HEMATOCRIT 21.1 % (42.0-52.0); MEAN CELL VOLUME 98.6 fl (80.0-94.0); MEAN CORPUSCULAR HGB 31.3 pg (27.0-31.0); MEAN CORPUSCULAR HGB CONC 31.8 g/dl (33.0-37.0); MEAN PLATELET VOLUME 10.9 fl (9.6-12.3); RED BLOOD COUNT 2.14 10*6/uL (4.50-5.90); RED CELL DISTRI WIDTH 23.3 % (0-14.5); WHITE BLOOD COUNT 3.5 10*3/uL (4.8-10.8)
[2021-08-12 06:41] LABS: PLATELET COUNT AUTOMATED 25 10*3/uL (130-400)
[2021-08-12 06:51] LABS: ALBUMIN 1.9 gm/dl (3.1-4.5); CREATININE 3.36 mg/dL (0.70-1.30); TOTAL PROTEIN 5.6 gm/dL (6.4-8.2)
[2021-08-12 08:24] LABS: BASOPHILS 1 % (0-1); BURR CELLS FEW; OVALOCYTES FEW; PLATELET SUFFICIENCY LOW (NORMAL); ROULEAUX SLIGHT; TOTAL CELLS COUNTED 100 #CELLS; TOXIC GRANULATION SLIGHT
[2021-08-12 09:07] LABS: CREATININE,URINE 142.3 mg/dL (Not Estab.)
[2021-08-13] VITALS (7 sets, daily range): BP systolic 101–150; BP diastolic 45–83
[2021-08-13 07:10] LABS: ALBUMIN 1.7 gm/dl (3.1-4.5); CREATININE 3.04 mg/dL (0.70-1.30); POTASSIUM 3.7 mmol/L (3.5-5.1); TOTAL PROTEIN 5.4 gm/dL (6.4-8.2)
[2021-08-14] VITALS (9 sets, daily range): BP systolic 118–143; BP diastolic 47–68
[2021-08-14 07:17] LABS: HEMATOCRIT 21.7 % (42.0-52.0); MEAN CELL VOLUME 97.3 fl (80.0-94.0); MEAN CORPUSCULAR HGB 31.4 pg (27.0-31.0); MEAN CORPUSCULAR HGB CONC 32.3 g/dl (33.0-37.0); RED BLOOD COUNT 2.23 10*6/uL (4.50-5.90); RED CELL DISTRI WIDTH 21.4 % (0-14.5); WHITE BLOOD COUNT 2.8 10*3/uL (4.8-10.8)
[2021-08-14 07:27] LABS: PLATELET COUNT AUTOMATED 11 10*3/uL (130-400)
[2021-08-14 07:33] LABS: ALBUMIN 1.6 gm/dl (3.1-4.5); CREATININE 2.86 mg/dL (0.70-1.30); POTASSIUM 3.8 mmol/L (3.5-5.1); TOTAL PROTEIN 5.3 gm/dL (6.4-8.2)
[2021-08-14 08:16] LABS: ATYPICAL LYMPHS 1 % (0-0); BASOPHILS 1 % (0-1); PLATELET SUFFICIENCY LOW (NORMAL); POLYCHROMASIA SLIGHT; ROULEAUX SLIGHT; SCHISTOCYTES FEW; TOTAL CELLS COUNTED 100 #CELLS; TOXIC GRANULATION MODERATE; VACUOLATION OF NEUTROPHILS SLIGHT
[2021-08-15] VITALS: BP 134/55
[2021-08-15 08:00] VITALS: BP 135/56
[2021-08-15 08:57] LABS: MEAN CORPUSCULAR HGB 30.5 pg (27.0-31.0); MEAN CORPUSCULAR HGB CONC 29.7 g/dl (33.0-37.0); MEAN PLATELET VOLUME 10.8 fl (9.6-12.3); RED BLOOD COUNT 1.87 10*6/uL (4.50-5.90); RED CELL DISTRI WIDTH 21.6 % (0-14.5)
[2021-08-15 09:03] LABS: ALBUMIN 1.6 gm/dl (3.1-4.5); CREATININE 2.73 mg/dL (0.70-1.30); POTASSIUM 3.7 mmol/L (3.5-5.1); TOTAL PROTEIN 5.2 gm/dL (6.4-8.2)
[2021-08-15 09:43] LABS: MEAN CELL VOLUME 102.7 fl (80.0-94.0)
[2021-08-15 09:47] LABS: HEMATOCRIT 19.2 % (42.0-52.0)
[2021-08-15 09:48] LABS: PLATELET COUNT AUTOMATED 28 10*3/uL (130-400)
[2021-08-15 09:53] LABS: PLATELET SUFFICIENCY LOW (NORMAL); TOTAL CELLS COUNTED 100 #CELLS
[2021-08-15 12:00] VITALS: BP 137/50
[2021-08-15 16:00] VITALS: BP 127/53
[2021-08-15 20:00] VITALS: BP 150/72
== END 2021-08-15 23:18 | disposition hospice, inpatient (51) | DRG 871 ==
LOC: ED 03:05 → EDHOLD 07:22 → 5E 07:22
PROVIDERS: Internal Medicine; Internal Medicine Nephrology; Nurse Practitioner Family; ADMIT Internal Medicine; ATTEND Internal Medicine
PROC: 30233R1 Transfusion of Nonautologous Platelets into Peripheral Vein, Percutaneous Approach (ICD-10-PCS; principal; 2021-08-11)
PROC: 30233N1 Transfusion of Nonautologous Red Blood Cells into Peripheral Vein, Percutaneous Approach (ICD-10-PCS; 2021-08-11)
DX: A41.59 Other Gram-negative sepsis (principal); N17.0 Acute kidney failure with tubular necrosis; I50.33 Acute on chronic diastolic (congestive) heart failure; J96.01 Acute respiratory failure with hypoxia; J18.9 Pneumonia, unspecified organism; E44.0 Moderate protein-calorie malnutrition; N39.0 Urinary tract infection, site not specified; E87.0 Hyperosmolality and hypernatremia; D61.818 Other pancytopenia; N18.4 Chronic kidney disease, stage 4 (severe); I48.21 Permanent atrial fibrillation; Z68.41 Body mass index [BMI] 40.0-44.9, adult; Z66 Do not resuscitate; Z51.5 Encounter for palliative care; R62.7 Adult failure to thrive; F17.210 Nicotine dependence, cigarettes, uncomplicated; S41.021A Laceration with foreign body of right shoulder, initial encounter; R00.1 Bradycardia, unspecified; D53.9 Nutritional anemia, unspecified; Z20.822 Contact with and (suspected) exposure to COVID-19; S00.93XA Contusion of unspecified part of head, initial encounter; D46.9 Myelodysplastic syndrome, unspecified; W19.XXXA Unspecified fall, initial encounter; Y93.9 Activity, unspecified; Y92.89 Other specified places as the place of occurrence of the external cause; Y99.8 Other external cause status; Z79.51 Long term (current) use of inhaled steroids; Z82.49 Family history of ischemic heart disease and other diseases of the circulatory system; Z79.899 Other long term (current) drug therapy

== ENCOUNTER 2021-08-15 23:52 | Inpatient (IN) | payer OTHER ==
[~2021-08-15] VITALS: Ht 185.4 cm; Wt 146.3 kg
[2021-08-15 23:00] VITALS: BP 117/33
[2021-08-16 08:00] VITALS: BP 133/43
== END 2021-08-16 14:30 | DRG 871 ==
LOC: 5E 23:52
PROVIDERS: ADMIT Internal Medicine; ATTEND Internal Medicine
DX: A41.59 Other Gram-negative sepsis (principal); J15.6 Pneumonia due to other Gram-negative bacteria; D46.9 Myelodysplastic syndrome, unspecified; S00.83XA Contusion of other part of head, initial encounter; X58.XXXA Exposure to other specified factors, initial encounter; Y93.89 Activity, other specified; Y99.8 Other external cause status; Y92.89 Other specified places as the place of occurrence of the external cause